=== PATIENT | male | born 1950 | race Caucasian/White ===

== ENCOUNTER 2021-12-28 13:00 | Outpatient (RCR) | payer MEDICARE, OTHER, SELFPAY ==
--- NOTE | 2021-11-20 20:54 | PT.OIE ---
Current Diagnoses Parkinson's disease (11/20/21) Visit Care Team Role Provider Type Sandrine Boyd MD Attending Provider Non-Staff Family Provider Primary Care Provider Referring Provider Specialty: Neurology Address: [address] [place] [address], [id number] Email: Physical Therapy Initial Evaluation PT-OP-A Visit Information Start: 11/19/21 20:22 Freq: Status: Active Protocol: Document 11/20/21 09:40 AMB (Rec: 11/20/21 10:11 AMB [id number]) Out-Patient Physical Therapy Visit Information Visit Information Visit Type Initial Evaluation Visit Start Time 09:45 Visit Stop Time 10:30 Total Visit Minutes 45 Visit Number 1 PT-OP-B Current Condition Start: 11/19/21 20:22 Freq: Status: Active Protocol: Document 11/20/21 09:40 AMB (Rec: 11/20/21 10:11 AMB [id number]) Current Condition History of Current Condition Onset Date 08/2019 Current Complaints PD History of Current Condition Kade Was really sick with Covid at the beginning of the pandemic and has had difficulty moving, walking ever since. Did have a bad fall wtih vacuuming April 2021. Hasn't been golfing since before covid. Is taking levodopa/carbadopa hasn't noticed a ton of change. Shoulder pain R just happened in the shower yesterday. Is noticing sleep changes, constipation. Feels bilateral knee/quad fatigue/pain limits his walking to about 15 minutes at this point. Lives in a single level home with his spouse a few steps to enter with railing. Treatment Goals Patient/Caregiver Goals Walking, signing name Personal Factors Other Personal Factors That May Effect Hypertension, B knee pain, R Therapy/Recovery shoulder pain PT-OP-E Functional Tests Start: 11/19/21 20:22 Freq: Status: Active Protocol: Document 11/20/21 10:16 AMB (Rec: 11/20/21 11:13 AMB [id number]) Functional Tests 10 Meter Walk Test Distance 6 Device Used none Five Times Sit to Stand Test Score 9 Comments UEs used, standard height chair Other single leg stance Name of Test 2 seconds PT-OP-G Mobility & Gait Start: 11/19/21 20:22 Freq: Status: Active Protocol: Document 11/20/21 10:16 AMB (Rec: 11/20/21 11:13 AMB [id number]) OP Gait Assessment Comments Gait Comments Pt ambulates in the home without AD, does have a wide based SPC that he uses in the community that he uses in the R UE. Poor heel strike with the left LE, tends to scuff toes. Fast gait but poor posture (forward lean) with reduced trunk rotation. Poor turning- loses balance when turning quickly or even at a moderate speed. PT-OP-J Posture/Palpation/Skin Start: 11/19/21 20:22 Freq: Status: Active Protocol: Document 11/20/21 10:16 AMB (Rec: 11/20/21 11:13 AMB [id number]) Posture Evaluation Comments Posture Comments Forward shoulders increased thoracic kyphosis, able to achieve upright posture with cues PT-OP-K Range of Motion Start: 11/19/21 20:22 Freq: Status: Active Protocol: Document 11/20/21 11:14 AMB (Rec: 11/20/21 11:17 AMB [id number]) Ankle and Foot Goniometric Range of Motion Ankle and Foot Left Passive Comments full passive range PT-OP-M Strength Start: 11/19/21 20:22 Freq: Status: Active Protocol: Document 11/20/21 11:14 AMB (Rec: 11/20/21 11:17 AMB [id number]) Shoulder Strength Shoulder Manual Muscle Testing Right Comments R shoulder pain when controlling descent from full flexion PT-OP-T Assessment and Plan Start: 11/19/21 20:22 Freq: Status: Active Protocol: Document 11/20/21 09:45 AMB (Rec: 11/23/21 08:17 AMB [id number]) Physical Therapy Assessment Rehab Potential Rehabilitation Potential Good Evaluation Complexity Number of Personal Factors/Comorbidities 1-2 Number of Body Systems Impaired 4 or More Clinical Presentation at Evaluation Evolving Impairments Impairments Balance,Functional Activities, Gait,Pain,Transfers Goals Two Impairment Upper body ADL Short Term Goal (STG) Kade will sign his name quicky and legibly on a check. STG Duration 4 weeks Dimensional Inspector Goal (LTG) Kade will don and doff a jacket quickly. LTG Duration 6 weeks One Impairment Gait Short Term Goal (STG) Kade will complete a pivot turn without loss of balance. STG Duration 4 weeks Dimensional Inspector Goal (LTG) Kade will ambulate 6 minutes over smooth terrain without loss of balance, 1,700 feet would be age/gender norm. LTG Duration 6 weeks Assessment Summary Assessment Kade attends physical therapy with symptoms consistent with Parkinson's Disease including tremor, freezing gait with turns, shuffling gait L>R, and bilateral knee pain that make it difficult for him to ambulate in the community and in his home. He will benefit from physical therapy LSVT BIG to improve his mobility, gait , transfers, as well as address more fine motor including upper body dressing and handwriting. Physical Therapy Plan Frequency and Duration Frequency of Treatment 4x/Week Duration of Treatment 6 weeks Plan of Care Start Date 11/20/21 Plan of Care End Date 01/01/22 Therapeutic Interventions Therapeutic Interventions Balance Training,Gait Training ,Home Exercise Program, Neuromuscular Re-education, Patient/Caregiver Education, Self-Care/Home Management, Therapeutic Activities, Therapeutic Exercises Next Visit Focus/Plan Next Note Type Treatment Note Next Visit Plan Begin LSVT Big program, review Functional Activities list
--- NOTE | 2021-11-20 20:57 | PT.OPPOC ---
Physical, Occupational & Speech Therapy At [facility] Current Diagnoses Parkinson's disease (11/20/21) Visit Care Team Role Provider Type Sandrine Boyd MD Attending Provider Non-Staff Family Provider Primary Care Provider Referring Provider Specialty: Neurology Address: [address] [place] [address], [id number] Email: Plan Of Care PT-OP-T Assessment and Plan Start: 11/19/21 20:22 Freq: Status: Active Protocol: Document 11/20/21 09:45 AMB (Rec: 11/23/21 08:17 AMB [id number]) Physical Therapy Assessment Rehab Potential Rehabilitation Potential Good Evaluation Complexity Number of Personal Factors/Comorbidities 1-2 Number of Body Systems Impaired 4 or More Clinical Presentation at Evaluation Evolving Impairments Impairments Balance,Functional Activities, Gait,Pain,Transfers Goals Two Impairment Upper body ADL Short Term Goal (STG) Kade will sign his name quicky and legibly on a check. STG Duration 4 weeks [facility] Goal (LTG) Kade will don and doff a jacket quickly. LTG Duration 6 weeks One Impairment Gait Short Term Goal (STG) Kade will complete a pivot turn without loss of balance. STG Duration 4 weeks Railroad Car Checker Goal (LTG) Kade will ambulate 6 minutes over smooth terrain without loss of balance, 1,700 feet would be age/gender norm. LTG Duration 6 weeks Assessment Summary Assessment Kade attends physical therapy with symptoms consistent with Parkinson's Disease including tremor, freezing gait with turns, shuffling gait L>R, and bilateral knee pain that make it difficult for him to ambulate in the community and in his home. He will benefit from physical therapy LSVT BIG to improve his mobility, gait , transfers, as well as address more fine motor including upper body dressing and handwriting. Physical Therapy Plan Frequency and Duration Frequency of Treatment 4x/Week Duration of Treatment 6 weeks Plan of Care Start Date 11/20/21 Plan of Care End Date 01/01/22 Therapeutic Interventions Therapeutic Interventions Balance Training,Gait Training ,Home Exercise Program, Neuromuscular Re-education, Patient/Caregiver Education, Self-Care/Home Management, Therapeutic Activities, Therapeutic Exercises Next Visit Focus/Plan Next Note Type Treatment Note Next Visit Plan Begin LSVT Big program, review Functional Activities list Plan of Care Dates Plan of Care Start Date 11/20/21 Plan of Care End Date 01/01/22 Electronically Signed by: Emma Gil PT 11/23/21 [id number] If you are in agreement with this Plan of Care, please return a signed and dated copy. I have reviewed this Plan of Care and certify that the skilled therapy services above are required to meet the patient?s needs. Physician Signature Date Printed Name and Credentials Clinical Instructor Signature Printed Name and Credentials
--- NOTE | 2021-12-04 12:42 | PT.OTN ---
Current Diagnoses Parkinson's disease (12/04/21) Physical Therapy Treatment Note PT-OP-A Visit Information Start: 11/19/21 20:22 Freq: Status: Active Protocol: Document 12/04/21 11:10 AMB (Rec: 12/04/21 12:03 AMB [id number]) Out-Patient Physical Therapy Visit Information Visit Information Visit Type Treatment Note Visit Start Time 11:00 Visit Stop Time 12:00 Total Visit Minutes 60 Visit Number 2 PT-OP-B Current Condition Start: 11/19/21 20:22 Freq: Status: Active Protocol: Document 11/20/21 09:40 AMB (Rec: 11/20/21 10:11 AMB [id number]) Current Condition History of Current Condition Onset Date 08/2019 Current Complaints PD History of Current Condition Kade Was really sick with Covid at the beginning of the pandemic and has had difficulty moving, walking ever since. Did have a bad fall wtih vaccuming April 2021. Hasn't been golfing since before covid. Is taking levodopa/carbadopa hasn't noticed a ton of change. Shoulder pain R just happened in the shower yesterday. Is noticing sleep changes, constipation. Feels bilateral knee/quad fatigue/pain limits his walking to about 15 minutes at this point. Lives in a single level home with his spouse a few steps to enter with railing. Treatment Goals Patient/Caregiver Goals Walking, signing name Personal Factors Other Personal Factors That May Effect Hypertension, B knee pain, R Therapy/Recovery shouder pain PT-OP-C Subjective Start: 11/19/21 20:22 Freq: Status: Active Protocol: Document 12/04/21 11:10 AMB (Rec: 12/04/21 12:03 AMB [id number]) OP-PT Subjective Patient Comments Patient Comments Pt having a difficult day today. PT-OP-E Functional Tests Start: 11/19/21 20:22 Freq: Status: Active Protocol: Document 11/20/21 10:16 AMB (Rec: 11/20/21 11:13 AMB [id number]) Functional Tests 10 Meter Walk Test Distance 6 Device Used none Five Times Sit to Stand Test Score 9 Comments UEs used, standard height chair Other single leg stance Name of Test 2 seconds PT-OP-G Mobility & Gait Start: 11/19/21 20:22 Freq: Status: Active Protocol: Document 11/20/21 10:16 AMB (Rec: 11/20/21 11:13 AMB [id number]) OP Gait Assessment Comments Gait Comments Pt ambulates in the home without AD, does have a wide based SPC that he uses in the community that he uses in the R UE. Poor heel strike with the left LE, tends to scuff toes. Fast gait but poor posture (forward lean) with reduced trunk rotation. Poor turning- loses balance when turning quickly or even at a moderate speed. PT-OP-J Posture/Palpation/Skin Start: 11/19/21 20:22 Freq: Status: Active Protocol: Document 11/20/21 10:16 AMB (Rec: 11/20/21 11:13 AMB [id number]) Posture Evaluation Comments Posture Comments Forward shoulders increased thoracic kyphosis, able to achieve upright posture with cues PT-OP-K Range of Motion Start: 11/19/21 20:22 Freq: Status: Active Protocol: Document 11/20/21 11:14 AMB (Rec: 11/20/21 11:17 AMB [id number]) Ankle and Foot Goniometric Range of Motion Ankle and Foot Left Passive Comments full passive range PT-OP-M Strength Start: 11/19/21 20:22 Freq: Status: Active Protocol: Document 11/20/21 11:14 AMB (Rec: 11/20/21 11:17 AMB [id number]) Shoulder Strength Shoulder Manual Muscle Testing Right Comments R shoulder pain when controlling descent from full flexion PT-OP-Q Treatments Start: 11/19/21 20:22 Freq: Status: Active Protocol: Document 12/04/21 11:00 AMB (Rec: 12/04/21 12:42 AMB [id number]) Gait Training Gait Activity 1 Description smooth terrain, no AD Distance/Duration 150 Comments cued big step, slower pacing, trunk rotation Neuro Re-Education Treatment Other Activities Sit to stand Details standard height chair Reps/Duration 10 Comments Good forward reach, cued upright posture Sideways Rock and Reach Reps/Duration 10 Comments Adapted with UE on chair, cued pivot on toes Forward Rock and Reach Details Chair support Reps/Duration 10 Backward Step Details Chair support Reps/Duration 10 Comments Pt with difficulty coordinating UE and LE movement Sideways Step Details Chair support Reps/Duration 10 Forward Step Details Chair support Reps/Duration 10 Side to side Details with finger flicks Reps/Duration 8 Floor to ceiling Details with finger flicks Reps/Duration 8 PT-OP-T Assessment and Plan Start: 11/19/21 20:22 Freq: Status: Active Protocol: Document 12/04/21 11:00 AMB (Rec: 12/04/21 12:42 AMB [id number]) Physical Therapy Assessment Goals Two Impairment Upper body ADL Short Term Goal (STG) Kade will sign his name quicky and legibly on a check. STG Duration 4 weeks Senior Living Goal (LTG) Kade will don and doff a jacket quickly. LTG Duration 6 weeks One Impairment Gait Short Term Goal (STG) Kade will complete a pivot turn without loss of balance. STG Duration 4 weeks Forensic Nurse Goal (LTG) Kade will ambulate 6 minutes over smooth terrain without loss of balance, 1,700 feet would be age/gender norm. LTG Duration 6 weeks Assessment Summary Assessment Kade did better with gait today with cues for big steps, rather than worrying about heel toe strike. States he remembers people telling him to get off his toes when he walked as a kid. Does have a tendency to have a festinating gait at times. Did well with adapted exercises. Physical Therapy Plan Next Visit Focus/Plan Next Note Type Treatment Note Next Visit Plan Begin LSVT Big program- adapted, review Functional Activities list (pt filled out but did not assign numbers). Gait training with turns as tolerated, fine motor includes : contacts, tie shoes, writing .
--- NOTE | 2021-12-05 17:13 | PT.OTN ---
Current Diagnoses Parkinson's disease (12/05/21) Physical Therapy Treatment Note PT-OP-A Visit Information Start: 11/19/21 20:22 Freq: Status: Active Protocol: Document 12/05/21 14:11 AW (Rec: 12/05/21 17:13 AW [id number]) Out-Patient Physical Therapy Visit Information Visit Information Visit Type Treatment Note Visit Start Time 14:15 Visit Stop Time 15:15 Total Visit Minutes 60 Visit Number 3 PT-OP-B Current Condition Start: 11/19/21 20:22 Freq: Status: Active Protocol: Document 11/20/21 09:40 AMB (Rec: 11/20/21 10:11 AMB [id number]) Current Condition History of Current Condition Onset Date 08/2019 Current Complaint[address] History of Current Condition Kade Was really sick with Covid at the beginning of the pandemic and has had difficulty moving, walking ever since. Did have a bad fall wtih vaccuming April 2021. Hasn't been golfing since before covid. Is taking levodopa/carbadopa hasn't noticed a ton of change. Shoulder pain R just happened in the shower yesterday. Is noticing sleep changes, constipation. Feels bilateral knee/quad fatigue/pain limits his walking to about 15 minutes at this point. Lives in a single level home with his spouse a few steps to enter with railing. Treatment Goals Patient/Caregiver Goals Walking, signing name Personal Factors Other Personal Factors That May Effect Hypertension, B knee pain, R Therapy/Recovery shouder pain PT-OP-C Subjective Start: 11/19/21 20:22 Freq: Status: Active Protocol: Document 12/05/21 14:11 AW (Rec: 12/05/21 17:13 AW [id number]) OP-PT Subjective Patient Comments Patient Comments This is hard work. I still feel sore from yesterday. PT-OP-E Functional Tests Start: 11/19/21 20:22 Freq: Status: Active Protocol: Document 11/20/21 10:16 AMB (Rec: 11/20/21 11:13 AMB [id number]) Functional Tests 10 Meter Walk Test Distance 6 Device Used none Five Times Sit to Stand Test Score 9 Comments UEs used, standard height chair Other single leg stance Name of Test 2 seconds PT-OP-G Mobility & Gait Start: 11/19/21 20:22 Freq: Status: Active Protocol: Document 11/20/21 10:16 AMB (Rec: 11/20/21 11:13 AMB [id number]) OP Gait Assessment Comments Gait Comments Pt ambulates in the home without AD, does have a wide based SPC that he uses in the community that he uses in the R UE. Poor heel strike with the left LE, tends to scuff toes. Fast gait but poor posture (forward lean) with reduced trunk rotation. Poor turning- loses balance when turning quickly or even at a moderate speed. PT-OP-J Posture/Palpation/Skin Start: 11/19/21 20:22 Freq: Status: Active Protocol: Document 11/20/21 10:16 AMB (Rec: 11/20/21 11:13 AMB [id number]) Posture Evaluation Comments Posture Comments Forward shoulders increased thoracic kyphosis, able to achieve upright posture with cues PT-OP-K Range of Motion Start: 11/19/21 20:22 Freq: Status: Active Protocol: Document 11/20/21 11:14 AMB (Rec: 11/20/21 11:17 AMB [id number]) Ankle and Foot Goniometric Range of Motion Ankle and Foot Left Passive Comments full passive range PT-OP-M Strength Start: 11/19/21 20:22 Freq: Status: Active Protocol: Document 11/20/21 11:14 AMB (Rec: 11/20/21 11:17 AMB [id number]) Shoulder Strength Shoulder Manual Muscle Testing Right Comments R shoulder pain when controlling descent from full flexion PT-OP-Q Treatments Start: 11/19/21 20:22 Freq: Status: Active Protocol: Document 12/05/21 14:11 AW (Rec: 12/05/21 17:13 AW [id number]) Therapeutic Activity Therapeutic Activity writing Name writing Comments Writing on extra-wide ruled paper with emphasis on improving amplitude - especially toward right side of page. Encouraged finger flicks and solid cart driver on the pen. Gait Training Gait Activity turns Description turns Comments Cued BIG steps, stopping stutter steps - 45 deg in two steps or less - 90 deg in 4 steps or less - 360 deg in 8 steps or less 1 Description smooth terrain, no AD Distance/Duration 80 x 8 Comments -Cued big step, slower pacing, trunk rotation. -Worked on festinating pattern and pt was able to identify when falling into stutter steps. Cued Stop, stand tall, shift weight , step big. -Practiced quick stops. Neuro Re-Education Treatment Other Activities Sit to stand Details standard height chair Reps/Duration 10 Comments Good forward reach, cued upright posture Sideways Rock and Reach Reps/Duration 10 Comments Adapted with UE on rail, cued increased rotation, pivot on back foot. Forward Rock and Reach Details Chair support Reps/Duration 10 Backward Step Details Chair support Reps/Duration 10 Comments Focused on LE movement first before adding arm swing. Sideways Step Details Chair support Reps/Duration 10 Forward Step Details Chair support Reps/Duration 10 Side to side Details with finger flicks Reps/Duration 8 Floor to ceiling Details with finger flicks Reps/Duration 8 PT-OP-T Assessment and Plan Start: 11/19/21 20:22 Freq: Status: Active Protocol: Document 12/05/21 14:11 AW (Rec: 12/05/21 17:13 AW [id number]) Physical Therapy Assessment Goals Two Impairment Upper body ADL Short Term Goal (STG) Kade will sign his name quicky and legibly on a check. STG Duration 4 weeks Shopper Marketing Manager Goal (LTG) Kade will don and doff a jacket quickly. LTG Duration 6 weeks One Impairment Gait Short Term Goal (STG) Kade will complete a pivot turn without loss of balance. STG Duration 4 weeks Shopper Marketing Manager Goal (LTG) Kade will ambulate 6 minutes over smooth terrain without loss of balance, 1,700 feet would be age/gender norm. LTG Duration 6 weeks Assessment Summary Assessment Kade was able to improve his turns with cues for BIG steps. He has trouble with stopping quickly, often unable to arrest his forward momentum. To address festinating pattern , pt was cued to stop, stand tall, shift weight, and step big to reset. Pt had some success identifying stutter or shuffle step and did self- correct ~50% of the time during practice. Carryover to outside the clinic is poor at this time and will require repetition to improve calibration. Physical Therapy Plan Frequency and Duration Frequency of Treatment 4x/Week Duration of Treatment 6 weeks Plan of Care Start Date 11/20/21 Plan of Care End Date 01/01/22 Therapeutic Interventions Therapeutic Interventions Balance Training,Gait Training ,Home Exercise Program, Neuromuscular Re-education, Patient/Caregiver Education, Self-Care/Home Management, Therapeutic Activities, Therapeutic Exercises Next Visit Focus/Plan Next Note Type Treatment Note Next Visit Plan Continue with adapted exercises, gait with turns and quick stops, functional activities.
--- NOTE | 2021-12-06 12:10 | PT.OTN ---
Current Diagnoses Parkinson's disease (12/06/21) Physical Therapy Treatment Note PT-OP-A Visit Information Start: 11/19/21 20:22 Freq: Status: Active Protocol: Document 12/06/21 11:02 AMB (Rec: 12/06/21 11:40 AMB [id number]) Out-Patient Physical Therapy Visit Information Visit Information Visit Type Treatment Note Visit Start Time 11:00 Visit Stop Time 12:00 Total Visit Minutes 60 Visit Number 4 PT-OP-B Current Condition Start: 11/19/21 20:22 Freq: Status: Active Protocol: Document 11/20/21 09:40 AMB (Rec: 11/20/21 10:11 AMB [id number]) Current Condition History of Current Condition Onset Date 08/2019 Current Complaints PD History of Current Condition Kade Was really sick with Covid at the beginning of the pandemic and has had difficulty moving, walking ever since. Did have a bad fall wtih vaccuming April 2021. Hasn't been golfing since before covid. Is taking levodopa/carbadopa hasn't noticed a ton of change. Shoulder pain R just happened in the shower yesterday. Is noticing sleep changes, constipation. Feels bilateral knee/quad fatigue/pain limits his walking to about 15 minutes at this point. Lives in a single level home with his spouse a few steps to enter with railing. Treatment Goals Patient/Caregiver Goals Walking, signing name Personal Factors Other Personal Factors That May Effect Hypertension, B knee pain, R Therapy/Recovery shouder pain PT-OP-C Subjective Start: 11/19/21 20:22 Freq: Status: Active Protocol: Document 12/06/21 11:02 AMB (Rec: 12/06/21 11:40 AMB [id number]) OP-PT Subjective Patient Comments Patient Comments I worked on walking and turning with less than 8 steps last night. R shoulder has been a little sore. PT-OP-E Functional Tests Start: 11/19/21 20:22 Freq: Status: Active Protocol: Document 11/20/21 10:16 AMB (Rec: 11/20/21 11:13 AMB [id number]) Functional Tests 10 Meter Walk Test Distance 6 Device Used none Five Times Sit to Stand Test Score 9 Comments UEs used, standard height chair Other single leg stance Name of Test 2 seconds PT-OP-G Mobility & Gait Start: 11/19/21 20:22 Freq: Status: Active Protocol: Document 11/20/21 10:16 AMB (Rec: 11/20/21 11:13 AMB [id number]) OP Gait Assessment Comments Gait Comments Pt ambulates in the home without AD, does have a wide based SPC that he uses in the community that he uses in the R UE. Poor heel strike with the left LE, tends to scuff toes. Fast gait but poor posture (forward lean) with reduced trunk rotation. Poor turning- loses balance when turning quickly or even at a moderate speed. PT-OP-J Posture/Palpation/Skin Start: 11/19/21 20:22 Freq: Status: Active Protocol: Document 11/20/21 10:16 AMB (Rec: 11/20/21 11:13 AMB [id number]) Posture Evaluation Comments Posture Comments Forward shoulders increased thoracic kyphosis, able to achieve upright posture with cues PT-OP-K Range of Motion Start: 11/19/21 20:22 Freq: Status: Active Protocol: Document 11/20/21 11:14 AMB (Rec: 11/20/21 11:17 AMB [id number]) Ankle and Foot Goniometric Range of Motion Ankle and Foot Left Passive Comments full passive range PT-OP-M Strength Start: 11/19/21 20:22 Freq: Status: Active Protocol: Document 11/20/21 11:14 AMB (Rec: 11/20/21 11:17 AMB [id number]) Shoulder Strength Shoulder Manual Muscle Testing Right Comments R shoulder pain when controlling descent from full flexion PT-OP-Q Treatments Start: 11/19/21 20:22 Freq: Status: Active Protocol: Document 12/06/21 11:02 AMB (Rec: 12/06/21 11:40 AMB [id number]) Gait Training Gait Activity 1 Description smooth terrain, no AD Distance/Duration 80 x 4 Comments -Cued big step, slower pacing, trunk rotation. -Worked on festinating pattern and pt was able to identify when falling into stutter steps. Cued Stop, stand tall, shift weight , step big. Pt needed Reg to stop festination today, lower gait tolerance. Feels fatigued, SpO2 98%. Pt needed multiple rest breaks for safety. Neuro Re-Education Treatment Other Activities Sit to stand Details standard height chair; blue balance foam Reps/Duration 10 Comments Good forward reach, cued upright posture Sideways Rock and Reach Reps/Duration 12 Comments Adapted with UE on rail, cued increased rotation, pivot on back foot. Forward Rock and Reach Details Chair support Reps/Duration 12 Backward Step Details Chair support Reps/Duration 10 Comments Focused on LE movement first before adding arm swing. Sideways Step Details Chair support available, pt did not use Reps/Duration 10 Forward Step Details Chair support available, pt did not use Reps/Duration 10 Side to side Details with finger flicks Reps/Duration 8 Floor to ceiling Details with finger flicks Reps/Duration 8 PT-OP-T Assessment and Plan Start: 11/19/21 20:22 Freq: Status: Active Protocol: Document 12/06/21 11:02 AMB (Rec: 12/06/21 11:40 AMB [id number]) Physical Therapy Assessment Goals Two Impairment Upper body ADL Short Term Goal (STG) Kade will sign his name quicky and legibly on a check. STG Duration 4 weeks Windows Admin Goal (LTG) Kade will don and doff a jacket quickly. LTG Duration 6 weeks One Impairment Gait Short Term Goal (STG) Kade will complete a pivot turn without loss of balance. STG Duration 4 weeks Windows Admin Goal (LTG) Kade will ambulate 6 minutes over smooth terrain without loss of balance, 1,700 feet would be age/gender norm. LTG Duration 6 weeks Assessment Summary Assessment Kade had a hard time with gait after exercise today, feeling very fatigued despite multiple seated rest breaks. Festinating gait comes out significantly with fatigue and pt needed Reg on multiple instances to prevent LOB anteriorly. Pt states he generally reaches out for a wall when this happens at home . Physical Therapy Plan Next Visit Focus/Plan Next Note Type Treatment Note Next Visit Plan Continue with adapted exercises, gait with turns and quick stops, functional activities, can consider outdoor environment as tolerated as pt feels SOB with masking.
--- NOTE | 2021-12-07 15:15 | PT.OTN ---
Current Diagnoses Parkinson's disease (12/07/21) Physical Therapy Treatment Note PT-OP-A Visit Information Start: 11/19/21 20:22 Freq: Status: Active Protocol: Document 12/07/21 13:58 AW (Rec: 12/07/21 15:15 AW [id number]) Out-Patient Physical Therapy Visit Information Visit Information Visit Type Treatment Note Visit Start Time 14:15 Visit Stop Time 15:15 Total Visit Minutes 60 Visit Number 5 PT-OP-B Current Condition Start: 11/19/21 20:22 Freq: Status: Active Protocol: Document 11/20/21 09:40 AMB (Rec: 11/20/21 10:11 AMB [id number]) Current Condition History of Current Condition Onset Date 08/2019 Current Complaints PD History of Current Condition Kade Was really sick with Covid at the beginning of the pandemic and has had difficulty moving, walking ever since. Did have a bad fall wtih vaccuming April 2021. Hasn't been golfing since before covid. Is taking levodopa/carbadopa hasn't noticed a ton of change. Shoulder pain R just happened in the shower yesterday. Is noticing sleep changes, constipation. Feels bilateral knee/quad fatigue/pain limits his walking to about 15 minutes at this point. Lives in a single level home with his spouse a few steps to enter with railing. Treatment Goals Patient/Caregiver Goals Walking, signing name Personal Factors Other Personal Factors That May Effect Hypertension, B knee pain, R Therapy/Recovery shouder pain PT-OP-C Subjective Start: 11/19/21 20:22 Freq: Status: Active Protocol: Document 12/07/21 13:58 AW (Rec: 12/07/21 15:15 AW [id number]) OP-PT Subjective Patient Comments Patient Comments Knees are sore. Pt is trying exercises at home but not sure he's doing them as well as he could. PT-OP-E Functional Tests Start: 11/19/21 20:22 Freq: Status: Active Protocol: Document 11/20/21 10:16 AMB (Rec: 11/20/21 11:13 AMB [id number]) Functional Tests 10 Meter Walk Test Distance 6 Device Used none Five Times Sit to Stand Test Score 9 Comments UEs used, standard height chair Other single leg stance Name of Test 2 seconds PT-OP-G Mobility & Gait Start: 11/19/21 20:22 Freq: Status: Active Protocol: Document 11/20/21 10:16 AMB (Rec: 11/20/21 11:13 AMB [id number]) OP Gait Assessment Comments Gait Comments Pt ambulates in the home without AD, does have a wide based SPC that he uses in the community that he uses in the [facility]. Poor heel strike with the left LE, tends to scuff toes. Fast gait but poor posture (forward lean) with reduced trunk rotation. Poor turning- loses balance when turning quickly or even at a moderate speed. PT-OP-J Posture/Palpation/Skin Start: 11/19/21 20:22 Freq: Status: Active Protocol: Document 11/20/21 10:16 AMB (Rec: 11/20/21 11:13 AMB [id number]) Posture Evaluation Comments Posture Comments Forward shoulders increased thoracic kyphosis, able to achieve upright posture with cues PT-OP-K Range of Motion Start: 11/19/21 20:22 Freq: Status: Active Protocol: Document 11/20/21 11:14 AMB (Rec: 11/20/21 11:17 AMB [id number]) Ankle and Foot Goniometric Range of Motion Ankle and Foot Left Passive Comments full passive range PT-OP-M Strength Start: 11/19/21 20:22 Freq: Status: Active Protocol: Document 11/20/21 11:14 AMB (Rec: 11/20/21 11:17 AMB [id number]) Shoulder Strength Shoulder Manual Muscle Testing Right Comments R shoulder pain when controlling descent from full flexion PT-OP-Q Treatments Start: 11/19/21 20:22 Freq: Status: Active Protocol: Document 12/07/21 13:58 AW (Rec: 12/07/21 15:15 AW [id number]) Therapeutic Activity Therapeutic Activity writing Name writing Comments -Practice checks. -Writing grocery list on extra -wide ruled paper with emphasis on improving amplitude - especially toward right side of page. Encouraged finger flicks and solid line repairer tower on the pen, movement of whole upper extremity. Gait Training Gait Activity turns Description turns Comments Cued BIG steps, slower pace - 45 deg in two steps or less - 90 deg in 4 steps or less - 360 deg in 8 steps or less 1 Description smooth terrain, no AD Surface in Distance/Duration 80 x 4 inside; 180 x 1 outside Comments -Cued big step, slower pacing, trunk rotation. -Worked on festinating pattern and pt was able to identify when falling into stutter steps. Cued Stop, stand tall, shift weight , step big. CGA to arrest forward momentum with sudden stops 50% of the time, improved with reps. Neuro Re-Education Treatment Other Activities Sit to stand Details standard height chair; blue balance foam Reps/Duration 10 Comments Good forward reach, cued upright posture Sideways Rock and Reach Reps/Duration 12 Comments Adapted with UE on rail, cued increased rotation, good self- correction with back foot pivot Forward Rock and Reach Details Chair support Reps/Duration 12 Backward Step Details Chair support Reps/Duration 10 Comments Focused on LE movement first before adding arm swing. Sideways Step Details Rail support available, pt did not use Reps/Duration 10 Forward Step Details Rail support Reps/Duration 10 Side to side Details with finger flicks Reps/Duration 8 Comments good self-corrections in posture Floor to ceiling Details with finger flicks Reps/Duration 8 PT-OP-T Assessment and Plan Start: 11/19/21 20:22 Freq: Status: Active Protocol: Document 12/07/21 13:58 AW (Rec: 12/07/21 15:15 AW [id number]) Physical Therapy Assessment Goals Two Impairment Upper body ADL Short Term Goal (STG) Kade will sign his name quicky and legibly on a check. STG Duration 4 weeks Physical Chemistry Professor Goal (LTG) Kade will don and doff a jacket quickly. LTG Duration 6 weeks One Impairment Gait Short Term Goal (STG) Kade will complete a pivot turn without loss of balance. STG Duration 4 weeks Physical Chemistry Professor Goal (LTG) Kade will ambulate 6 minutes over smooth terrain without loss of balance, 1,700 feet would be age/gender norm. LTG Duration 6 weeks Assessment Summary Assessment Kade had some good carryover with big steps in turns but continues to benefit from verbal cues to think big when initiating gait and when approaching a transition. Physical Therapy Plan Frequency and Duration Frequency of Treatment 4x/Week Duration of Treatment 6 weeks Plan of Care Start Date 11/20/21 Plan of Care End Date 01/01/22 Therapeutic Interventions Therapeutic Interventions Balance Training,Gait Training ,Home Exercise Program, Neuromuscular Re-education, Patient/Caregiver Education, Self-Care/Home Management, Therapeutic Activities, Therapeutic Exercises Next Visit Focus/Plan Next Note Type Treatment Note Next Visit Plan Continue with adapted exercises, gait with turns and quick stops, functional activities, can consider outdoor environment as tolerated as pt feels SOB with masking.
--- NOTE | 2021-12-11 12:43 | PT.OTN ---
Current Diagnoses Parkinson's disease (12/11/21) Physical Therapy Treatment Note PT-OP-A Visit Information Start: 11/19/21 20:22 Freq: Status: Active Protocol: Document 12/11/21 10:58 AMB (Rec: 12/11/21 11:57 AMB [id number]) Out-Patient Physical Therapy Visit Information Visit Information Visit Type Treatment Note Visit Start Time 11:00 Visit Stop Time 12:00 Total Visit Minutes 60 Visit Number 6 PT-OP-B Current Condition Start: 11/19/21 20:22 Freq: Status: Active Protocol: Document 11/20/21 09:40 AMB (Rec: 11/20/21 10:11 AMB [id number]) Current Condition History of Current Condition Onset Date 08/2019 Current Complaints PD History of Current Condition Kade Was really sick with Covid at the beginning of the pandemic and has had difficulty moving, walking ever since. Did have a bad fall wtih vaccuming April 2021. Hasn't been golfing since before covid. Is taking levodopa/carbadopa hasn't noticed a ton of change. Shoulder pain R just happened in the shower yesterday. Is noticing sleep changes, constipation. Feels bilateral knee/quad fatigue/pain limits his walking to about 15 minutes at this point. Lives in a single level home with his spouse a few steps to enter with railing. Treatment Goals Patient/Caregiver Goals Walking, signing name Personal Factors Other Personal Factors That May Effect Hypertension, B knee pain, R Therapy/Recovery shouder pain PT-OP-C Subjective Start: 11/19/21 20:22 Freq: Status: Active Protocol: Document 12/11/21 10:58 AMB (Rec: 12/11/21 11:57 AMB [id number]) OP-PT Subjective Patient Comments Patient Comments Pt's mom is in the hospital in [place]. PT-OP-E Functional Tests Start: 11/19/21 20:22 Freq: Status: Active Protocol: Document 11/20/21 10:16 AMB (Rec: 11/20/21 11:13 AMB [id number]) Functional Tests 10 Meter Walk Test Distance 6 Device Used none Five Times Sit to Stand Test Score 9 Comments UEs used, standard height chair Other single leg stance Name of Test 2 seconds PT-OP-G Mobility & Gait Start: 11/19/21 20:22 Freq: Status: Active Protocol: Document 11/20/21 10:16 AMB (Rec: 11/20/21 11:13 AMB [id number]) OP Gait Assessment Comments Gait Comments Pt ambulates in the home without AD, does have a wide based SPC that he uses in the community that he uses in the [facility]. Poor heel strike with the left LE, tends to scuff toes. Fast gait but poor posture (forward lean) with reduced trunk rotation. Poor turning- loses balance when turning quickly or even at a moderate speed. PT-OP-J Posture/Palpation/Skin Start: 11/19/21 20:22 Freq: Status: Active Protocol: Document 11/20/21 10:16 AMB (Rec: 11/20/21 11:13 AMB [id number]) Posture Evaluation Comments Posture Comments Forward shoulders increased thoracic kyphosis, able to achieve upright posture with cues PT-OP-K Range of Motion Start: 11/19/21 20:22 Freq: Status: Active Protocol: Document 11/20/21 11:14 AMB (Rec: 11/20/21 11:17 AMB [id number]) Ankle and Foot Goniometric Range of Motion Ankle and Foot Left Passive Comments full passive range PT-OP-M Strength Start: 11/19/21 20:22 Freq: Status: Active Protocol: Document 11/20/21 11:14 AMB (Rec: 11/20/21 11:17 AMB [id number]) Shoulder Strength Shoulder Manual Muscle Testing Right Comments R shoulder pain when controlling descent from full flexion PT-OP-Q Treatments Start: 11/19/21 20:22 Freq: Status: Active Protocol: Document 12/11/21 10:58 AMB (Rec: 12/11/21 11:57 AMB [id number]) Therapeutic Activity Therapeutic Activity donning jacket Name labcoat Reps/Minutes 3 Comments don/doff, careful with skin tear on L forearm, cued button through button hold Gait Training Gait Activity turns Description turns Comments Cued BIG steps, slower pace - 45 deg in two steps or less - 90 deg in 4 steps or less - 360 deg in 8 steps or less 1 Description smooth terrain, no AD Surface in Distance/Duration 100 x 4 inside; Comments -Cued big step, slower pacing, trunk rotation. -Worked on festinating pattern and pt was able to identify when falling into stutter steps. Cued Stop, stand tall, shift weight , step big. CGA to arrest forward momentum with sudden stops 25% of the time, improved with reps. Neuro Re-Education Treatment Other Activities Sit to stand Details standard height chair; blue balance foam Reps/Duration 5 Comments Good forward reach, cued upright posture Sideways Rock and Reach Reps/Duration 12 Comments Adapted with UE on rail, cued increased rotation, good self- correction with back foot pivot Forward Rock and Reach Details Chair support Reps/Duration 12 Backward Step Details Chair support Reps/Duration 10 Comments Focused on LE movement first before adding arm swing. Sideways Step Details Rail support available, pt did not use Reps/Duration 10 Forward Step Details Rail available but did not use Reps/Duration 10 Side to side Details with finger flicks Reps/Duration 8 Comments good self-corrections in posture Floor to ceiling Details with finger flicks Reps/Duration 8 PT-OP-T Assessment and Plan Start: 11/19/21 20:22 Freq: Status: Active Protocol: Document 12/11/21 10:58 AMB (Rec: 12/11/21 11:57 [facility] [id number]) Physical Therapy Assessment Goals Two Impairment Upper body ADL Short Term Goal (STG) Kade will sign his name quicky and legibly on a check. STG Duration 4 weeks Retirement Goal (LTG) Kade will don and doff a jacket quickly. LTG Duration 6 weeks One Impairment Gait Short Term Goal (STG) Kade will complete a pivot turn without loss of balance. STG Duration 4 weeks Retirement Goal (LTG) Kade will ambulate 6 minutes over smooth terrain without loss of balance, 1,700 feet would be age/gender norm. LTG Duration 6 weeks Assessment Summary Assessment Kade did better today. Did discuss energy conservation, [place] if pt is going to be flying to see his mom. Overall better gait today is more independent with stopping when shuffling gait starts. Physical Therapy Plan Frequency and Duration Frequency of Treatment 4x/Week Duration of Treatment 6 weeks Plan of Care Start Date 11/20/21 Plan of Care End Date 01/01/22 Therapeutic Interventions Therapeutic Interventions Balance Training,Gait Training ,Home Exercise Program, Neuromuscular Re-education, Patient/Caregiver Education, Self-Care/Home Management, Therapeutic Activities, Therapeutic Exercises Next Visit Focus/Plan Next Note Type Treatment Note Next Visit Plan Continue with adapted exercises, gait with turns and quick stops, functional activities, can consider outdoor environment as tolerated as pt feels SOB with masking.
--- NOTE | 2021-12-12 15:15 | PT.OTN ---
Current Diagnoses Parkinson's disease (12/12/21) Physical Therapy Treatment Note PT-OP-A Visit Information Start: 11/19/21 20:22 Freq: Status: Active Protocol: Document 12/12/21 14:02 AW (Rec: 12/12/21 15:14 AW [id number]) Out-Patient Physical Therapy Visit Information Visit Information Visit Type Treatment Note Visit Start Time 14:15 Visit Stop Time 15:10 Total Visit Minutes 55 Visit Number 7 PT-OP-B Current Condition Start: 11/19/21 20:22 Freq: Status: Active Protocol: Document 11/20/21 09:40 AMB (Rec: 11/20/21 10:11 AMB [id number]) Current Condition History of Current Condition Onset Date 08/2019 Current Complaints PD History of Current Condition Kade Was really sick with Covid at the beginning of the pandemic and has had difficulty moving, walking ever since. Did have a bad fall wtih vaccuming April 2021. Hasn't been golfing since before covid. Is taking levodopa/carbadopa hasn't noticed a ton of change. Shoulder pain R just happened in the shower yesterday. Is noticing sleep changes, constipation. Feels bilateral knee/quad fatigue/pain limits his walking to about 15 minutes at this point. Lives in a single level home with his spouse a few steps to enter with railing. Treatment Goals Patient/Caregiver Goals Walking, signing name Personal Factors Other Personal Factors That May Effect Hypertension, B knee pain, R Therapy/Recovery shouder pain PT-OP-C Subjective Start: 11/19/21 20:22 Freq: Status: Active Protocol: Document 12/12/21 14:02 AW (Rec: 12/12/21 15:14 AW [id number]) OP-PT Subjective Patient Comments Patient Comments Pt's mom has discharged from the hospital and will be going on hospice. Kade has no travel plans yet, hopes to finish BIG. PT-OP-E Functional Tests Start: 11/19/21 20:22 Freq: Status: Active Protocol: Document 11/20/21 10:16 AMB (Rec: 11/20/21 11:13 AMB [id number]) Functional Tests 10 Meter Walk Test Distance 6 Device Used none Five Times Sit to Stand Test Score 9 Comments UEs used, standard height chair Other single leg stance Name of Test 2 seconds PT-OP-G Mobility & Gait Start: 11/19/21 20:22 Freq: Status: Active Protocol: Document 11/20/21 10:16 AMB (Rec: 11/20/21 11:13 AMB [id number]) OP Gait Assessment Comments Gait Comments Pt ambulates in the home without AD, does have a wide based SPC that he uses in the community that he uses in the R UE. Poor heel strike with the left LE, tends to scuff toes. Fast gait but poor posture (forward lean) with reduced trunk rotation. Poor turning- loses balance when turning quickly or even at a moderate speed. PT-OP-J Posture/Palpation/Skin Start: 11/19/21 20:22 Freq: Status: Active Protocol: Document 11/20/21 10:16 AMB (Rec: 11/20/21 11:13 AMB [id number]) Posture Evaluation Comments Posture Comments Forward shoulders increased thoracic kyphosis, able to achieve upright posture with cues PT-OP-K Range of Motion Start: 11/19/21 20:22 Freq: Status: Active Protocol: Document 11/20/21 11:14 AMB (Rec: 11/20/21 11:17 AMB [id number]) Ankle and Foot Goniometric Range of Motion Ankle and Foot Left Passive Comments full passive range PT-OP-M Strength Start: 11/19/21 20:22 Freq: Status: Active Protocol: Document 11/20/21 11:14 AMB (Rec: 11/20/21 11:17 AMB [id number]) Shoulder Strength Shoulder Manual Muscle Testing Right Comments R shoulder pain when controlling descent from full flexion PT-OP-Q Treatments Start: 11/19/21 20:22 Freq: Status: Active Protocol: Document 12/12/21 14:02 AW (Rec: 12/12/21 15:14 AW [id number]) Therapeutic Activity Therapeutic Activity transfers Reps/Minutes transfers Comments 90-deg transfers chair to chair 5 feet apart. Focused on toes point away from chair before reaching for chair arms to control for sideways slide. writing Name writing Comments - Writing single word repeatedly across page with focus on big letters, controlled pace. Cued finger flicks, strong pencils washer, stop and do shoulder rolls when writing gets less controlled. Gait Training Gait Activity turns Description turns Comments Cued BIG steps, slower pace - 360 deg in 8 steps or less - gait with pivot turns 1 Description smooth terrain, no AD Distance/Duration 200' outside; 100 x 4 inside; Comments - Outside: pavement, grassy hill, stairs. -Inside: tile, carpet with additional practice on surface transitions. -Cued big step, slower pacing, trunk rotation. -Worked on festinating pattern and pt was able to identify when falling into stutter steps. Cued Stop, stand tall, shift weight , step big. CGA to arrest forward momentum with sudden stops on 1/10 trials. Neuro Re-Education Treatment Other Activities Sit to stand Details standard height chair; blue balance foam Reps/Duration 5 Comments Good forward reach, cued upright posture Sideways Rock and Reach Reps/Duration 12 Comments Adapted with UE on rail, cued increased rotation, good self- correction with back foot pivot Forward Rock and Reach Details Chair support Reps/Duration 12 Backward Step Details Chair support Reps/Duration 10 Comments Improved weight shift. Began to complain of iincreased knee pain. Sideways Step Details used both arms with SBA Forward Step Details used both arms with SBA Reps/Duration 10 Side to side Details with finger flicks Reps/Duration 8 Comments good self-corrections in posture Floor to ceiling Details with finger flicks Reps/Duration 8 PT-OP-T Assessment and Plan Start: 11/19/21 20:22 Freq: Status: Active Protocol: Document 12/12/21 14:02 AW (Rec: 12/12/21 15:14 AW [id number]) Physical Therapy Assessment Goals Two Impairment Upper body ADL Short Term Goal (STG) Kade will sign his name quicky and legibly on a check. STG Duration 4 weeks Real Estate Instructor Goal (LTG) Kade will don and doff a jacket quickly. LTG Duration 6 weeks One Impairment Gait Short Term Goal (STG) Kade will complete a pivot turn without loss of balance. STG Duration 4 weeks [facility] Goal (LTG) Kade will ambulate 6 minutes over smooth terrain without loss of balance, 1,700 feet would be age/gender norm. LTG Duration 6 weeks Assessment Summary Assessment Kade improved 360-degree turns to 6 steps and better foot clearance. He believes his endurance is improving with therapy but he remains easily fatiguable during gait. Physical Therapy Plan Frequency and Duration Frequency of Treatment 4x/Week Duration of Treatment 6 weeks Plan of Care Start Date 11/20/21 Plan of Care End Date 01/01/22 Therapeutic Interventions Therapeutic Interventions Balance Training,Gait Training ,Home Exercise Program, Neuromuscular Re-education, Patient/Caregiver Education, Self-Care/Home Management, Therapeutic Activities, Therapeutic Exercises Next Visit Focus/Plan Next Note Type Treatment Note Next Visit Plan Continue with adapted exercises, gait with turns and quick stops, functional activities, can consider outdoor environment as tolerated as pt feels SOB with masking.
--- NOTE | 2021-12-13 12:26 | PT.OTN ---
Current Diagnoses Parkinson's disease (12/13/21) Physical Therapy Treatment Note PT-OP-A Visit Information Start: 11/19/21 20:22 Freq: Status: Active Protocol: Document 12/13/21 11:04 AMB (Rec: 12/13/21 11:39 AMB [id number]) Out-Patient Physical Therapy Visit Information Visit Information Visit Type Treatment Note Visit Start Time 11:05 Visit Stop Time 12:00 Total Visit Minutes 55 Visit Number 8 PT-OP-B Current Condition Start: 11/19/21 20:22 Freq: Status: Active Protocol: Document 11/20/21 09:40 AMB (Rec: 11/20/21 10:11 AMB [id number]) Current Condition History of Current Condition Onset Date 08/2019 Current Complaints PD History of Current Condition Kade Was really sick with Covid at the beginning of the pandemic and has had difficulty moving, walking ever since. Did have a bad fall wtih vaccuming April 2021. Hasn't been golfing since before covid. Is taking levodopa/carbadopa hasn't noticed a ton of change. Shoulder pain R just happened in the shower yesterday. Is noticing sleep changes, constipation. Feels bilateral knee/quad fatigue/pain limits his walking to about 15 minutes at this point. Lives in a single level home with his spouse a few steps to enter with railing. Treatment Goals Patient/Caregiver Goals Walking, signing name Personal Factors Other Personal Factors That May Effect Hypertension, B knee pain, R Therapy/Recovery shouder pain PT-OP-C Subjective Start: 11/19/21 20:22 Freq: Status: Active Protocol: Document 12/13/21 11:04 AMB (Rec: 12/13/21 11:39 AMB [id number]) OP-PT Subjective Patient Comments Patient Comments Pt reports R knee gave out during weightshifting and he hit his head against the corner of the wall, he caught the wall and did not fall to the ground, but did scrape his forehead. PT-OP-E Functional Tests Start: 11/19/21 20:22 Freq: Status: Active Protocol: Document 11/20/21 10:16 AMB (Rec: 11/20/21 11:13 AMB [id number]) Functional Tests 10 Meter Walk Test Distance 6 Device Used none Five Times Sit to Stand Test Score 9 Comments UEs used, standard height chair Other single leg stance Name of Test 2 seconds PT-OP-G Mobility & Gait Start: 11/19/21 20:22 Freq: Status: Active Protocol: Document 11/20/21 10:16 AMB (Rec: 11/20/21 11:13 AMB [id number]) OP Gait Assessment Comments Gait Comments Pt ambulates in the home without AD, does have a wide based SPC that he uses in the community that he uses in the [place]. Poor heel strike with the left LE, tends to scuff toes. Fast gait but poor posture (forward lean) with reduced trunk rotation. Poor turning- loses balance when turning quickly or even at a moderate speed. PT-OP-J Posture/Palpation/Skin Start: 11/19/21 20:22 Freq: Status: Active Protocol: Document 11/20/21 10:16 AMB (Rec: 11/20/21 11:13 AMB [id number]) Posture Evaluation Comments Posture Comments Forward shoulders increased thoracic kyphosis, able to achieve upright posture with cues PT-OP-K Range of Motion Start: 11/19/21 20:22 Freq: Status: Active Protocol: Document 11/20/21 11:14 AMB (Rec: 11/20/21 11:17 AMB [id number]) Ankle and Foot Goniometric Range of Motion Ankle and Foot Left Passive Comments full passive range PT-OP-M Strength Start: 11/19/21 20:22 Freq: Status: Active Protocol: Document 11/20/21 11:14 AMB (Rec: 11/20/21 11:17 AMB [id number]) Shoulder Strength Shoulder Manual Muscle Testing Right Comments R shoulder pain when controlling descent from full flexion PT-OP-Q Treatments Start: 11/19/21 20:22 Freq: Status: Active Protocol: Document 12/13/21 11:04 AMB (Rec: 12/13/21 11:39 AMB [id number]) Therapeutic Activity Therapeutic Activity transfers Reps/Minutes transfers Comments 90-deg transfers chair to chair 5 feet apart. Focused on toes point away from chair before reaching for chair arms to control for sideways slide. Gait Training Gait Activity 1 Description 6MWT Comments 4 MWT with multiple rest breaks (seated and standing) pt tolerated 4 minutes before stopping due to knee pain. Pt had exhibited increased festinating pattern after about 2 minutes. Neuro Re-Education Treatment Other Activities Sit to stand Details standard height chair; blue balance foam Reps/Duration 5 Comments Good forward reach, cued upright posture Sideways Rock and Reach Reps/Duration 12 Comments Adapted with UE on rail, cued increased rotation, good self- correction with back foot pivot Forward Rock and Reach Details Chair support Reps/Duration 12 Backward Step Details Chair support Reps/Duration 10 Comments Improved weight shift. Began to complain of iincreased knee pain. Sideways Step Details used both arms with SBA Forward Step Details used both arms with SBA Reps/Duration 10 Side to side Details with finger flicks Reps/Duration 8 Comments good self-corrections in posture Floor to ceiling Details with finger flicks Reps/Duration 8 PT-OP-T Assessment and Plan Start: 11/19/21 20:22 Freq: Status: Active Protocol: Document 12/13/21 11:04 AMB (Rec: 12/13/21 11:39 AMB [id number]) Physical Therapy Assessment Goals Two Impairment Upper body ADL Short Term Goal (STG) Kade will sign his name quicky and legibly on a check. STG Duration 4 weeks Alf Goal (LTG) Kade will don and doff a jacket quickly. LTG Duration 6 weeks One Impairment Gait Short Term Goal (STG) Kade will complete a pivot turn without loss of balance. STG Duration 4 weeks Production Packager Goal (LTG) Kade will ambulate 6 minutes over smooth terrain without loss of balance, 1,700 feet would be age/gender norm. 8/3 : 4 minutes; 422ft, required 3 seated rest breaks, able to ambulate 200' then had to take frequent standing stops to control fwd LOB. LTG Duration 6 weeks Assessment Summary Assessment Kade was limited with his 6MWT today due to pain in his bilateral knees. Given that pain was the limiting factor and that he had a near fall due to knee pain yesterday, recommended pt discuss knee pain with PCP. Pt is actually between PC[facility] right now [facility], so recommended establishing with someone. Physical Therapy Plan Next Visit Focus/Plan Next Note Type Progress Note Next Visit Plan Continue with adapted exercises, gait with turns and quick stops, functional activities, can consider outdoor environment as tolerated as pt feels SOB with masking.
--- NOTE | 2021-12-14 13:12 | PT.OTN ---
Current Diagnoses Parkinson's disease (12/14/21) Physical Therapy Treatment Note PT-OP-A Visit Information Start: 11/19/21 20:22 Freq: Status: Active Protocol: Document 12/14/21 11:15 AMB (Rec: 12/14/21 11:52 AMB [id number]) Out-Patient Physical Therapy Visit Information Visit Information Visit Type Progress Note Visit Start Time 11:00 Visit Stop Time 12:00 Total Visit Minutes 60 Visit Number 9 PT-OP-B Current Condition Start: 11/19/21 20:22 Freq: Status: Active Protocol: Document 11/20/21 09:40 AMB (Rec: 11/20/21 10:11 AMB [id number]) Current Condition History of Current Condition Onset Date 08/2019 Current Complaints PD History of Current Condition Kade Was really sick with Covid at the beginning of the pandemic and has had difficulty moving, walking ever since. Did have a bad fall wtih vaccuming April 2021. Hasn't been golfing since before covid. Is taking levodopa/carbadopa hasn't noticed a ton of change. Shoulder pain R just happened in the shower yesterday. Is noticing sleep changes, constipation. Feels bilateral knee/quad fatigue/pain limits his walking to about 15 minutes at this point. Lives in a single level home with his spouse a few steps to enter with railing. Treatment Goals Patient/Caregiver Goals Walking, signing name Personal Factors Other Personal Factors That May Effect Hypertension, B knee pain, R Therapy/Recovery shouder pain PT-OP-C Subjective Start: 11/19/21 20:22 Freq: Status: Active Protocol: Document 12/14/21 11:15 AMB (Rec: 12/14/21 11:52 AMB [id number]) OP-PT Subjective Patient Comments Patient Comments Continued knee pain bilaterally with walking, somewhat with exercises but not as bad with those. Pain reduces quickly with seated rest break. PT-OP-E Functional Tests Start: 11/19/21 20:22 Freq: Status: Active Protocol: Document 11/20/21 10:16 AMB (Rec: 11/20/21 11:13 AMB [id number]) Functional Tests 10 Meter Walk Test Distance 6 Device Used none Five Times Sit to Stand Test Score 9 Comments UEs used, standard height chair Other single leg stance Name of Test 2 seconds PT-OP-G Mobility & Gait Start: 11/19/21 20:22 Freq: Status: Active Protocol: Document 11/20/21 10:16 AMB (Rec: 11/20/21 11:13 AMB [id number]) OP Gait Assessment Comments Gait Comments Pt ambulates in the home without AD, does have a wide based SPC that he uses in the community that he uses in the R UE. Poor heel strike with the left LE, tends to scuff toes. Fast gait but poor posture (forward lean) with reduced trunk rotation. Poor turning- loses balance when turning quickly or even at a moderate speed. PT-OP-J Posture/Palpation/Skin Start: 11/19/21 20:22 Freq: Status: Active Protocol: Document 11/20/21 10:16 AMB (Rec: 11/20/21 11:13 AMB [id number]) Posture Evaluation Comments Posture Comments Forward shoulders increased thoracic kyphosis, able to achieve upright posture with cues PT-OP-K Range of Motion Start: 11/19/21 20:22 Freq: Status: Active Protocol: Document 11/20/21 11:14 AMB (Rec: 11/20/21 11:17 AMB [id number]) Ankle and Foot Goniometric Range of Motion Ankle and Foot Left Passive Comments full passive range PT-OP-M Strength Start: 11/19/21 20:22 Freq: Status: Active Protocol: Document 11/20/21 11:14 AMB (Rec: 11/20/21 11:17 AMB [id number]) Shoulder Strength Shoulder Manual Muscle Testing Right Comments R shoulder pain when controlling descent from full flexion PT-OP-Q Treatments Start: 11/19/21 20:22 Freq: Status: Active Protocol: Document 12/14/21 11:15 AMB (Rec: 12/14/21 11:52 AMB [id number]) Therapeutic Activity Therapeutic Activity transfers Reps/Minutes transfers Comments 90-deg transfers chair to chair 5 feet apart. Focused on toes point away from chair before reaching for chair arms to control for sideways slide. Gait Training Gait Activity 2 Description TUG Comments x3- 13 sec turns Description turns Comments Cued BIG steps, slower pace - 360 deg in 8 steps or less - gait with pivot turns Neuro Re-Education Treatment Other Activities Sit to stand Details standard height chair; blue balance foam Reps/Duration 5 Comments Good forward reach, cued upright posture Sideways Rock and Reach Reps/Duration 12 Comments Adapted with UE on rail, cued increased rotation, good self- correction with back foot pivot Forward Rock and Reach Details Chair support Reps/Duration 12 Backward Step Details Chair support Reps/Duration 10 Comments Improved weight shift. Began to complain of iincreased knee pain. Sideways Step Details used both arms with SBA Forward Step Details used both arms with SBA Reps/Duration 10 Side to side Details with finger flicks Reps/Duration 8 Comments good self-corrections in posture Floor to ceiling Details with finger flicks Reps/Duration 8 PT-OP-T Assessment and Plan Start: 11/19/21 20:22 Freq: Status: Active Protocol: Document 12/14/21 11:15 AMB (Rec: 12/14/21 11:52 AMB [id number]) Physical Therapy Assessment Goals Two Impairment Upper body ADL Short Term Goal (STG) Kade will sign his name quicky and legibly on a check. STG Duration MET Paint Factory Worker Goal (LTG) Kade will don and doff a jacket quickly. LTG Duration 6 weeks One Impairment Gait Short Term Goal (STG) Kade will complete a pivot turn without loss of balance. STG Duration 4 weeks Paint Factory Worker Goal (LTG) Kade will ambulate 6 minutes over smooth terrain without loss of balance, 1,700 feet would be age/gender norm. 8/3 : 4 minutes; 422ft, required 3 seated rest breaks, able to ambulate 200' then had to take frequent standing stops to control fwd LOB. LTG Duration 6 weeks Assessment Summary Assessment TU seconds, 10MWT 7 seconds. Turns less stable than straight away, bilateral knee pain limits gait. Kade is going to follow up with PCP /orthopedist regarding knee pain as SOB, balance, and knee pain all limit gait, but he perceives knee pain as the most limiting at this time. Does have pain with over pressure into flexion and extension. Exercises are not as painful as gait. Physical Therapy Plan Frequency and Duration Frequency of Treatment 4x/Week Duration of Treatment 6 weeks Plan of Care Start Date 11/20/21 Plan of Care End Date 01/01/22 Next Visit Focus/Plan Next Note Type Progress Note Next Visit Plan Continue with adapted exercises, gait with turns and quick stops, functional activities, can consider outdoor environment as tolerated as pt feels SOB with masking.
--- NOTE | 2021-12-18 12:01 | PT.OTN ---
Current Diagnoses Parkinson's disease (12/18/21) Physical Therapy Treatment Note PT-OP-A Visit Information Start: 11/19/21 20:22 Freq: Status: Active Protocol: Document 12/18/21 11:03 AMB (Rec: 12/18/21 11:48 AMB [id number]) Out-Patient Physical Therapy Visit Information Visit Information Visit Type Treatment Note Visit Start Time 11:00 Visit Stop Time 12:00 Total Visit Minutes 45 Visit Number 10 PT-OP-B Current Condition Start: 11/19/21 20:22 Freq: Status: Active Protocol: Document 11/20/21 09:40 AMB (Rec: 11/20/21 10:11 AMB [id number]) Current Condition History of Current Condition Onset Date 08/2019 Current Complaints PD History of Current Condition Kade Was really sick with Covid at the beginning of the pandemic and has had difficulty moving, walking ever since. Did have a bad fall wtih vaccuming April 2021. Hasn't been golfing since before covid. Is taking levodopa/carbadopa hasn't noticed a ton of change. Shoulder pain R just happened in the shower yesterday. Is noticing sleep changes, constipation. Feels bilateral knee/quad fatigue/pain limits his walking to about 15 minutes at this point. Lives in a single level home with his spouse a few steps to enter with railing. Treatment Goals Patient/Caregiver Goals Walking, signing name Personal Factors Other Personal Factors That May Effect Hypertension, B knee pain, R Therapy/Recovery shouder pain PT-OP-C Subjective Start: 11/19/21 20:22 Freq: Status: Active Protocol: Document 12/18/21 11:03 AMB (Rec: 12/18/21 11:48 AMB [id number]) OP-PT Subjective Patient Comments Patient Comments Kade over did it on Saturday. Is more stiff today as a result. Tried to go on a 6 minute walk over uneven terrain. PT-OP-E Functional Tests Start: 11/19/21 20:22 Freq: Status: Active Protocol: Document 11/20/21 10:16 AMB (Rec: 11/20/21 11:13 AMB [id number]) Functional Tests 10 Meter Walk Test Distance 6 Device Used none Five Times Sit to Stand Test Score 9 Comments UEs used, standard height chair Other single leg stance Name of Test 2 seconds PT-OP-G Mobility & Gait Start: 11/19/21 20:22 Freq: Status: Active Protocol: Document 11/20/21 10:16 AMB (Rec: 11/20/21 11:13 AMB [id number]) OP Gait Assessment Comments Gait Comments Pt ambulates in the home without AD, does have a wide based SPC that he uses in the community that he uses in the R UE. Poor heel strike with the left LE, tends to scuff toes. Fast gait but poor posture (forward lean) with reduced trunk rotation. Poor turning- loses balance when turning quickly or even at a moderate speed. PT-OP-J Posture/Palpation/Skin Start: 11/19/21 20:22 Freq: Status: Active Protocol: Document 11/20/21 10:16 AMB (Rec: 11/20/21 11:13 AMB [id number]) Posture Evaluation Comments Posture Comments Forward shoulders increased thoracic kyphosis, able to achieve upright posture with cues PT-OP-K Range of Motion Start: 11/19/21 20:22 Freq: Status: Active Protocol: Document 11/20/21 11:14 AMB (Rec: 11/20/21 11:17 AMB [id number]) Ankle and Foot Goniometric Range of Motion Ankle and Foot Left Passive Comments full passive range PT-OP-M Strength Start: 11/19/21 20:22 Freq: Status: Active Protocol: Document 11/20/21 11:14 AMB (Rec: 11/20/21 11:17 AMB [id number]) Shoulder Strength Shoulder Manual Muscle Testing Right Comments R shoulder pain when controlling descent from full flexion PT-OP-Q Treatments Start: 11/19/21 20:22 Freq: Status: Active Protocol: Document 12/18/21 11:03 AMB (Rec: 12/18/21 11:48 AMB [id number]) Therapeutic Activity Therapeutic Activity transfers Reps/Minutes transfers Comments 90-deg transfers chair to chair 5 feet apart. Focused on toes point away from chair before reaching for chair arms to control for sideways slide. Gait Training Gait Activity walking sticks Comments over smooth terrain, didn't especially seem to improve step length, pt had a difficult time managing stick even though he uses one on uneven terrain stairs Description 4 stairs ascend and descned with railing alternating gait Comments good turns Description turns Comments Cued BIG steps, slower pace - 360 deg in 8 steps or less - gait with pivot turns Neuro Re-Education Treatment Other Activities Sit to stand Details standard height chair; blue balance foam Reps/Duration 5 Comments Good forward reach, cued upright posture Sideways Rock and Reach Reps/Duration 12 Comments Adapted with UE on rail, cued increased rotation, good self- correction with back foot pivot Forward Rock and Reach Details Chair support Reps/Duration 12 Backward Step Details Chair support Reps/Duration 10 Comments Improved weight shift. Began to complain of iincreased knee pain. Sideways Step Details used both arms with SBA Forward Step Details used both arms with SBA Reps/Duration 10 Side to side Details with finger flicks Reps/Duration 8 Comments good self-corrections in posture Floor to ceiling Details with finger flicks Reps/Duration 8 PT-OP-T Assessment and Plan Start: 11/19/21 20:22 Freq: Status: Active Protocol: Document 12/18/21 11:03 AMB (Rec: 12/18/21 11:48 [facility] [id number]) Physical Therapy Assessment Goals Two Impairment Upper body ADL Short Term Goal (STG) Kade will sign his name quicky and legibly on a check. STG Duration MET Care Home Goal (LTG) Kade will don and doff a jacket quickly. LTG Duration 6 weeks One Impairment Gait Short Term Goal (STG) Kade will complete a pivot turn without loss of balance. STG Duration 4 weeks Care Home Goal (LTG) Kade will ambulate 6 minutes over smooth terrain without loss of balance, 1,700 feet would be age/gender norm. 8/3 : 4 minutes; 422ft, required 3 seated rest breaks, able to ambulate 200' then had to take frequent standing stops to control fwd LOB. LTG Duration 6 weeks Assessment Summary Assessment Increased difficulty with walking today afer over doing on Saturday. Time spent counseling patient to avoid long walks but to try 1minute walk, 1 minute rest, as longer walks (over 3-4minutes) especially tire him out. Physical Therapy Plan Next Visit Focus/Plan Next Note Type Treatment Note Next Visit Plan Continue with adapted exercises, gait with turns and quick stops, functional activities, can consider outdoor environment as tolerated as pt feels SOB with masking.
--- NOTE | 2021-12-19 15:47 | PT.OTN ---
Current Diagnoses Parkinson's disease (12/19/21) Physical Therapy Treatment Note PT-OP-A Visit Information Start: 11/19/21 20:22 Freq: Status: Active Protocol: Document 12/19/21 11:02 AMB (Rec: 12/19/21 11:50 AMB [id number]) Out-Patient Physical Therapy Visit Information Visit Information Visit Type Treatment Note Visit Start Time 11:00 Visit Stop Time 12:00 Total Visit Minutes 45 Visit Number 11 PT-OP-B Current Condition Start: 11/19/21 20:22 Freq: Status: Active Protocol: Document 11/20/21 09:40 AMB (Rec: 11/20/21 10:11 AMB [id number]) Current Condition History of Current Condition Onset Date 08/2019 Current Complaints PD History of Current Condition Kade Was really sick with Covid at the beginning of the pandemic and has had difficulty moving, walking ever since. Did have a bad fall wtih vaccuming April 2021. Hasn't been golfing since before covid. Is taking levodopa/carbadopa hasn't noticed a ton of change. Shoulder pain R just happened in the shower yesterday. Is noticing sleep changes, constipation. Feels bilateral knee/quad fatigue/pain limits his walking to about 15 minutes at this point. Lives in a single level home with his spouse a few steps to enter with railing. Treatment Goals Patient/Caregiver Goals Walking, signing name Personal Factors Other Personal Factors That May Effect Hypertension, B knee pain, R Therapy/Recovery shouder pain PT-OP-C Subjective Start: 11/19/21 20:22 Freq: Status: Active Protocol: Document 12/19/21 11:02 AMB (Rec: 12/19/21 11:50 AMB [id number]) OP-PT Subjective Patient Comments Patient Comments Feeling better with knees after resting a bit yesterday, still working on re- establishing with PCP after PCP moved away and needs a new one. PT-OP-E Functional Tests Start: 11/19/21 20:22 Freq: Status: Active Protocol: Document 11/20/21 10:16 AMB (Rec: 11/20/21 11:13 AMB [id number]) Functional Tests 10 Meter Walk Test Distance 6 Device Used none Five Times Sit to Stand Test Score 9 Comments UEs used, standard height chair Other single leg stance Name of Test 2 seconds PT-OP-G Mobility & Gait Start: 11/19/21 20:22 Freq: Status: Active Protocol: Document 11/20/21 10:16 AMB (Rec: 11/20/21 11:13 AMB [id number]) OP Gait Assessment Comments Gait Comments Pt ambulates in the home without AD, does have a wide based SPC that he uses in the community that he uses in the [place] [facility]. Poor heel strike with the left LE, tends to scuff toes. Fast gait but poor posture (forward lean) with reduced trunk rotation. Poor turning- loses balance when turning quickly or even at a moderate speed. PT-OP-J Posture/Palpation/Skin Start: 11/19/21 20:22 Freq: Status: Active Protocol: Document 11/20/21 10:16 AMB (Rec: 11/20/21 11:13 AMB [id number]) Posture Evaluation Comments Posture Comments Forward shoulders increased thoracic kyphosis, able to achieve upright posture with cues PT-OP-K Range of Motion Start: 11/19/21 20:22 Freq: Status: Active Protocol: Document 11/20/21 11:14 AMB (Rec: 11/20/21 11:17 AMB [id number]) Ankle and Foot Goniometric Range of Motion Ankle and Foot Left Passive Comments full passive range PT-OP-M Strength Start: 11/19/21 20:22 Freq: Status: Active Protocol: Document 11/20/21 11:14 AMB (Rec: 11/20/21 11:17 AMB [id number]) Shoulder Strength Shoulder Manual Muscle Testing Right Comments R shoulder pain when controlling descent from full flexion PT-OP-Q Treatments Start: 11/19/21 20:22 Freq: Status: Active Protocol: Document 12/19/21 11:02 AMB (Rec: 12/19/21 11:50 AMB [id number]) Gym Equipment Shuttle Recovery Bilateral Squats Resistance 75 Reps/Time 2x10 Therapeutic Exercises Standing Exercises wall squat Reps/Minutes 2x5 Therapeutic Activity Therapeutic Activity transfers Reps/Minutes transfers Comments 90-deg transfers chair to chair 5 feet apart. Focused on toes point away from chair before reaching for chair arms to control for sideways slide. Gait Training Gait Activity stairs Description 4 stairs ascend and descned with railing alternating gait Comments good turns Description turns Comments Cued BIG steps, slower pace - 360 deg in 8 steps or less - gait with pivot turns Neuro Re-Education Treatment Other Activities Sit to stand Details standard height chair; blue balance foam Reps/Duration 10 Comments Good forward reach, cued upright posture Sideways Rock and Reach Reps/Duration 12 Comments Adapted with UE on rail, cued increased rotation, good self- correction with back foot pivot Forward Rock and Reach Details Chair support Reps/Duration 12 Backward Step Details Chair support Reps/Duration 10 Comments Improved weight shift. Began to complain of iincreased knee pain. Sideways Step Details used both arms with SBA Forward Step Details used both arms with SBA Reps/Duration 10 Side to side Details with finger flicks Reps/Duration 8 Comments good self-corrections in posture Floor to ceiling Details with finger flicks Reps/Duration 8 PT-OP-T Assessment and Plan Start: 11/19/21 20:22 Freq: Status: Active Protocol: Document 12/19/21 11:02 AMB (Rec: 12/19/21 11:50 AMB [id number]) Physical Therapy Assessment Goals Two Impairment Upper body ADL Short Term Goal (STG) Kade will sign his name quicky and legibly on a check. STG Duration MET Intermediate Goal (LTG) Kade will don and doff a jacket quickly. LTG Duration 6 weeks One Impairment Gait Short Term Goal (STG) Kade will complete a pivot turn without loss of balance. STG Duration 4 weeks Intermediate Goal (LTG) Kade will ambulate 6 minutes over smooth terrain without loss of balance, 1,700 feet would be age/gender norm. 83 : 4 minutes; 422ft, required 3 seated rest breaks, able to ambulate 200' then had to take frequent standing stops to control fwd LOB. LTG Duration 6 weeks Assessment Summary Assessment Better walking, but knee pain continues to limit, knee pain worsens when festinating gait worsens. Was able to tolerate shuttle and wall squats to help improve quad strength as pt feels he fatigues very quickly and then pain sets in. Physical Therapy Plan Next Visit Focus/Plan Next Note Type Treatment Note Next Visit Plan Continue with adapted exercises, gait with turns and quick stops, functional activities, can consider outdoor environment as tolerated as pt feels SOB with masking.
--- NOTE | 2021-12-20 13:44 | PT.OTN ---
Current Diagnoses Parkinson's disease (12/20/21) Physical Therapy Treatment Note PT-OP-A Visit Information Start: 11/19/21 20:22 Freq: Status: Active Protocol: Document 12/20/21 11:02 AMB (Rec: 12/20/21 11:29 AMB [id number]) Out-Patient Physical Therapy Visit Information Visit Information Visit Type Treatment Note Visit Start Time 11:00 Visit Stop Time 12:00 Total Visit Minutes 60 Visit Number 12 PT-OP-B Current Condition Start: 11/19/21 20:22 Freq: Status: Active Protocol: Document 11/20/21 09:40 AMB (Rec: 11/20/21 10:11 AMB [id number]) Current Condition History of Current Condition Onset Date 08/2019 Current Complaints PD History of Current Condition Kade Was really sick with Covid at the beginning of the pandemic and has had difficulty moving, walking ever since. Did have a bad fall wtih vaccuming April 2021. Hasn't been golfing since before covid. Is taking levodopa/carbadopa hasn't noticed a ton of change. Shoulder pain R just happened in the shower yesterday. Is noticing sleep changes, constipation. Feels bilateral knee/quad fatigue/pain limits his walking to about 15 minutes at this point. Lives in a single level home with his spouse a few steps to enter with railing. Treatment Goals Patient/Caregiver Goals Walking, signing name Personal Factors Other Personal Factors That May Effect Hypertension, B knee pain, R Therapy/Recovery shouder pain PT-OP-C Subjective Start: 11/19/21 20:22 Freq: Status: Active Protocol: Document 12/20/21 11:02 AMB (Rec: 12/20/21 11:29 AMB [id number]) OP-PT Subjective Patient Comments Patient Comments Continues to feel better with the knees. PT-OP-E Functional Tests Start: 11/19/21 20:22 Freq: Status: Active Protocol: Document 11/20/21 10:16 AMB (Rec: 11/20/21 11:13 AMB [id number]) Functional Tests 10 Meter Walk Test Distance 6 Device Used none Five Times Sit to Stand Test Score 9 Comments UEs used, standard height chair Other single leg stance Name of Test 2 seconds PT-OP-G Mobility & Gait Start: 11/19/21 20:22 Freq: Status: Active Protocol: Document 11/20/21 10:16 AMB (Rec: 11/20/21 11:13 AMB [id number]) OP Gait Assessment Comments Gait Comments Pt ambulates in the home without AD, does have a wide based SPC that he uses in the community that he uses in the R UE. Poor heel strike with the left LE, tends to scuff toes. Fast gait but poor posture (forward lean) with reduced trunk rotation. Poor turning- loses balance when turning quickly or even at a moderate speed. PT-OP-J Posture/Palpation/Skin Start: 11/19/21 20:22 Freq: Status: Active Protocol: Document 11/20/21 10:16 AMB (Rec: 11/20/21 11:13 AMB [id number]) Posture Evaluation Comments Posture Comments Forward shoulders increased thoracic kyphosis, able to achieve upright posture with cues PT-OP-K Range of Motion Start: 11/19/21 20:22 Freq: Status: Active Protocol: Document 11/20/21 11:14 AMB (Rec: 11/20/21 11:17 AMB [id number]) Ankle and Foot Goniometric Range of Motion Ankle and Foot Left Passive Comments full passive range PT-OP-M Strength Start: 11/19/21 20:22 Freq: Status: Active Protocol: Document 11/20/21 11:14 AMB (Rec: 11/20/21 11:17 AMB [id number]) Shoulder Strength Shoulder Manual Muscle Testing Right Comments R shoulder pain when controlling descent from full flexion PT-OP-Q Treatments Start: 11/19/21 20:22 Freq: Status: Active Protocol: Document 12/20/21 11:02 AMB (Rec: 12/20/21 11:29 AMB [id number]) Gym Equipment Shuttle Recovery Bilateral Squats Resistance 75 Reps/Time 2x10 Therapeutic Exercises Standing Exercises calf stretch Reps/Minutes 30x2 wall squat Reps/Minutes 2x5 Gait Training Gait Activity turns Description turns Comments Cued BIG steps, slower pace - 360 deg in 8 steps or less - gait with pivot turns Neuro Re-Education Treatment Other Activities Sit to stand Details standard height chair; blue balance foam Reps/Duration 10 Comments Good forward reach, cued upright posture Sideways Rock and Reach Reps/Duration 12 Comments NO UE support, cued pivot Forward Rock and Reach Details No support Reps/Duration 12 Backward Step Details Chair support Reps/Duration 10 Comments Improved weight shift. Began to complain of iincreased knee pain. Sideways Step Details used both arms with SBA Forward Step Details used both arms with SBA Reps/Duration 10 Side to side Details with finger flicks Reps/Duration 8 Comments good self-corrections in posture Floor to ceiling Details with finger flicks Reps/Duration 8 PT-OP-T Assessment and Plan Start: 11/19/21 20:22 Freq: Status: Active Protocol: Document 12/20/21 11:02 AMB (Rec: 12/20/21 11:29 AMB [id number]) Physical Therapy Assessment Goals Two Impairment Upper body ADL Short Term Goal (STG) Kade will sign his name quicky and legibly on a check. STG Duration MET Reference Data Expert Goal (LTG) Kade will don and doff a jacket quickly. LTG Duration 6 weeks One Impairment Gait Short Term Goal (STG) Kade will complete a pivot turn without loss of balance. STG Duration 4 weeks Detention Goal (LTG) Kade will ambulate 6 minutes over smooth terrain without loss of balance, 1,700 feet would be age/gender norm. 3 : 4 minutes; 422ft, required 3 seated rest breaks, able to ambulate 200' then had to take frequent standing stops to control fwd LOB. LTG Duration 6 weeks Assessment Summary Assessment Better knee pain today, does have more festinating when gets fatigued. Physical Therapy Plan Frequency and Duration Frequency of Treatment 4x/Week Duration of Treatment 6 weeks Plan of Care Start Date 11/20/21 Plan of Care End Date 01/01/22 Therapeutic Interventions Therapeutic Interventions Balance Training,Gait Training ,Home Exercise Program, Neuromuscular Re-education, Patient/Caregiver Education, Self-Care/Home Management, Therapeutic Activities, Therapeutic Exercises Next Visit Focus/Plan Next Note Type Treatment Note Next Visit Plan Continue with adapted exercises, gait with turns and quick stops, functional activities, can consider outdoor environment as tolerated as pt feels SOB with masking.
--- NOTE | 2021-12-21 12:00 | PT.OTN ---
Current Diagnoses Parkinson's disease (12/21/21) Physical Therapy Treatment Note PT-OP-A Visit Information Start: 11/19/21 20:22 Freq: Status: Active Protocol: Document 12/21/21 11:07 AMB (Rec: 12/21/21 11:44 AMB [id number]) Out-Patient Physical Therapy Visit Information Visit Information Visit Type Treatment Note Visit Start Time 11:00 Visit Stop Time 12:00 Total Visit Minutes 60 Visit Number 13 PT-OP-B Current Condition Start: 11/19/21 20:22 Freq: Status: Active Protocol: Document 11/20/21 09:40 AMB (Rec: 11/20/21 10:11 AMB [id number]) Current Condition History of Current Condition Onset Date 08/2019 [address] Complaint[address] History of Current Condition Kade Was really sick with Covid at the beginning of the pandemic and has had difficulty moving, walking ever since. Did have a bad fall wtih vaccuming April 2021. Hasn't been golfing since before covid. Is taking levodopa/carbadopa hasn't noticed a ton of change. Shoulder pain R just happened in the shower yesterday. Is noticing sleep changes, constipation. Feels bilateral knee/quad fatigue/pain limits his walking to about 15 minutes at this point. Lives in a single level home with his spouse a few steps to enter with railing. Treatment Goals Patient/Caregiver Goals Walking, signing name Personal Factors Other Personal Factors That May Effect Hypertension, B knee pain, R Therapy/Recovery shouder pain PT-OP-C Subjective Start: 11/19/21 20:22 Freq: Status: Active Protocol: Document 12/21/21 11:00 AMB (Rec: 12/21/21 11:49 AMB [id number]) OP-PT Subjective Patient Comments Patient Comments Pt is doing ok PT-OP-E Functional Tests Start: 11/19/21 20:22 Freq: Status: Active Protocol: Document 11/20/21 10:16 AMB (Rec: 11/20/21 11:13 AMB [id number]) Functional Tests 10 Meter Walk Test Distance 6 Device Used none Five Times Sit to Stand Test Score 9 Comments UEs used, standard height chair Other single leg stance Name of Test 2 seconds PT-OP-G Mobility & Gait Start: 11/19/21 20:22 Freq: Status: Active Protocol: Document 11/20/21 10:16 AMB (Rec: 11/20/21 11:13 AMB [id number]) OP Gait Assessment Comments Gait Comments Pt ambulates in the home without AD, does have a wide based SPC that he uses in the community that he uses in the R UE. Poor heel strike with the left LE, tends to scuff toes. Fast gait but poor posture (forward lean) with reduced trunk rotation. Poor turning- loses balance when turning quickly or even at a moderate speed. PT-OP-J Posture/Palpation/Skin Start: 11/19/21 20:22 Freq: Status: Active Protocol: Document 11/20/21 10:16 AMB (Rec: 11/20/21 11:13 AMB [id number]) Posture Evaluation Comments Posture Comments Forward shoulders increased thoracic kyphosis, able to achieve upright posture with cues PT-OP-K Range of Motion Start: 11/19/21 20:22 Freq: Status: Active Protocol: Document 11/20/21 11:14 AMB (Rec: 11/20/21 11:17 AMB [id number]) Ankle and Foot Goniometric Range of Motion Ankle and Foot Left Passive Comments full passive range PT-OP-M Strength Start: 11/19/21 20:22 Freq: Status: Active Protocol: Document 11/20/21 11:14 AMB (Rec: 11/20/21 11:17 AMB [id number]) Shoulder Strength Shoulder Manual Muscle Testing Right Comments R shoulder pain when controlling descent from full flexion PT-OP-Q Treatments Start: 11/19/21 20:22 Freq: Status: Active Protocol: Document 12/21/21 11:07 AMB (Rec: 12/21/21 11:44 AMB [id number]) Gym Equipment Shuttle Recovery Bilateral Squats Resistance 75 Reps/Time 2x10 Therapeutic Exercises Standing Exercises calf stretch Reps/Minutes 30x2 Gait Training Gait Activity 2 Description 200' Comments no AD-- festinating gait increases last 50' turns Description turns Comments Cued BIG steps, slower pace - 360 deg in 8 steps or less - gait with pivot turns Neuro Re-Education Treatment Other Activities Sit to stand Details standard height chair; blue balance foam Reps/Duration 10 Comments Good forward reach, cued upright posture Sideways Rock and Reach Reps/Duration 12 Comments NO UE support, cued pivot Forward Rock and Reach Details No support Reps/Duration 12 Backward Step Details Chair support Reps/Duration 10 Comments Improved weight shift. Began to complain of iincreased knee pain. Sideways Step Details used both arms with SBA Forward Step Details used both arms with SBA Reps/Duration 10 Side to side Details with finger flicks Reps/Duration 8 Comments good self-corrections in posture Floor to ceiling Details with finger flicks Reps/Duration 8 PT-OP-T Assessment and Plan Start: 11/19/21 20:22 Freq: Status: Active Protocol: Document 12/21/21 11:07 AMB (Rec: 12/21/21 11:44 AMB [id number]) Physical Therapy Assessment Goals Two Impairment Upper body ADL Short Term Goal (STG) Kade will sign his name quicky and legibly on a check. STG Duration MET Straddle Bug Goal (LTG) Kade will don and doff a jacket quickly. LTG Duration 6 weeks One Impairment Gait Short Term Goal (STG) Kade will complete a pivot turn without loss of balance. STG Duration 4 weeks [facility] Goal (LTG) Kade will ambulate 6 minutes over smooth terrain without loss of balance, 1,700 feet would be age/gender norm. 8/3 : 4 minutes; 422ft, required 3 seated rest breaks, able to ambulate 200' then had to take frequent standing stops to control fwd LOB. LTG Duration 6 weeks Assessment Summary Assessment Turns with gait when knees get fatigued increase challenge significantly. Continues to get fatigued after about 200'. Weightbearing continues to irritate knee pain. Encouraged pt to consider pool exercise given knee pain. Physical Therapy Plan Frequency and Duration Frequency of Treatment 4x/Week Duration of Treatment 6 weeks Plan of Care Start Date 11/20/21 Plan of Care End Date 01/01/22 Next Visit Focus/Plan Next Note Type Treatment Note Next Visit Plan Continue with adapted exercises, gait with turns and quick stops, functional activities, can consider outdoor environment as tolerated as pt feels SOB with masking.
--- NOTE | 2021-12-25 15:51 | PT.OTN ---
Current Diagnoses Parkinson's disease (12/25/21) Physical Therapy Treatment Note PT-OP-A Visit Information Start: 11/19/21 20:22 Freq: Status: Active Protocol: Document 12/25/21 11:01 AMB (Rec: 12/25/21 11:24 AMB [id number]) Out-Patient Physical Therapy Visit Information Visit Information Visit Type Treatment Note Visit Start Time 11:00 Visit Stop Time 12:00 Total Visit Minutes 60 Visit Number 14 PT-OP-B Current Condition Start: 11/19/21 20:22 Freq: Status: Active Protocol: Document 11/20/21 09:40 AMB (Rec: 11/20/21 10:11 AMB [id number]) Current Condition History of Current Condition Onset Date 08/2019 Current Complaint[address] History of Current Condition Kade Was really sick with Covid at the beginning of the pandemic and has had difficulty moving, walking ever since. Did have a bad fall wtih vaccuming April 2021. Hasn't been golfing since before covid. Is taking levodopa/carbadopa hasn't noticed a ton of change. Shoulder pain R just happened in the shower yesterday. Is noticing sleep changes, constipation. Feels bilateral knee/quad fatigue/pain limits his walking to about 15 minutes at this point. Lives in a single level home with his spouse a few steps to enter with railing. Treatment Goals Patient/Caregiver Goals Walking, signing name Personal Factors Other Personal Factors That May Effect Hypertension, B knee pain, R Therapy/Recovery shouder pain PT-OP-C Subjective Start: 11/19/21 20:22 Freq: Status: Active Protocol: Document 12/25/21 11:01 AMB (Rec: 12/25/21 11:24 AMB [id number]) OP-PT Subjective Patient Comments Patient Comments Pt feels like he's getting a bit stronger. PT-OP-E Functional Tests Start: 11/19/21 20:22 Freq: Status: Active Protocol: Document 11/20/21 10:16 AMB (Rec: 11/20/21 11:13 AMB [id number]) Functional Tests 10 Meter Walk Test Distance 6 Device Used none Five Times Sit to Stand Test Score 9 Comments UEs used, standard height chair Other single leg stance Name of Test 2 seconds PT-OP-G Mobility & Gait Start: 11/19/21 20:22 Freq: Status: Active Protocol: Document 11/20/21 10:16 AMB (Rec: 11/20/21 11:13 AMB [id number]) OP Gait Assessment Comments Gait Comments Pt ambulates in the home without AD, does have a wide based SPC that he uses in the community that he uses in the [place] [facility]. Poor heel strike with the left LE, tends to scuff toes. Fast gait but poor posture (forward lean) with reduced trunk rotation. Poor turning- loses balance when turning quickly or even at a moderate speed. PT-OP-J Posture/Palpation/Skin Start: 11/19/21 20:22 Freq: Status: Active Protocol: Document 11/20/21 10:16 AMB (Rec: 11/20/21 11:13 AMB [id number]) Posture Evaluation Comments Posture Comments Forward shoulders increased thoracic kyphosis, able to achieve upright posture with cues PT-OP-K Range of Motion Start: 11/19/21 20:22 Freq: Status: Active Protocol: Document 11/20/21 11:14 AMB (Rec: 11/20/21 11:17 AMB [id number]) Ankle and Foot Goniometric Range of Motion Ankle and Foot Left Passive Comments full passive range PT-OP-M Strength Start: 11/19/21 20:22 Freq: Status: Active Protocol: Document 11/20/21 11:14 AMB (Rec: 11/20/21 11:17 AMB [id number]) Shoulder Strength Shoulder Manual Muscle Testing Right Comments R shoulder pain when controlling descent from full flexion PT-OP-Q Treatments Start: 11/19/21 20:22 Freq: Status: Active Protocol: Document 12/25/21 11:01 AMB (Rec: 12/25/21 11:24 AMB [id number]) Gym Equipment Shuttle Recovery Bilateral Squats Resistance 75 Reps/Time 2x10 Gait Training Gait Activity turns Description turns Comments Cued BIG steps, slower pace - 360 deg in 8 steps or less - gait with pivot turns 1 Description hurdles Comments in // bars- 4 reps with UE support, 2 without. Neuro Re-Education Treatment Other Activities Sit to stand Details standard height chair; blue balance foam Reps/Duration 10 Comments Good forward reach, cued upright posture Sideways Rock and Reach Reps/Duration 12 Comments NO UE support, cued pivot Forward Rock and Reach Details No support Reps/Duration 12 Backward Step Details Chair support Reps/Duration 10 Sideways Step Details used both arms with SBA Forward Step Details used both arms with SBA Reps/Duration 10 Side to side Details with finger flicks Reps/Duration 8 Comments good self-corrections in posture Floor to ceiling Details with finger flicks Reps/Duration 8 PT-OP-T Assessment and Plan Start: 11/19/21 20:22 Freq: Status: Active Protocol: Document 12/25/21 11:01 AMB (Rec: 12/25/21 11:24 AMB [id number]) Physical Therapy Assessment Goals Two Impairment Upper body ADL Short Term Goal (STG) Kade will sign his name quicky and legibly on a check. STG Duration MET [place] Closer Goal (LTG) Kade will don and doff a jacket quickly. LTG Duration 6 weeks One Impairment Gait Short Term Goal (STG) Kade will complete a pivot turn without loss of balance. STG Duration 4 weeks Snf Goal (LTG) Kade will ambulate 6 minutes over smooth terrain without loss of balance, 1,700 feet would be age/gender norm. 8/3 : 4 minutes; 422ft, required 3 seated rest breaks, able to ambulate 200' then had to take frequent standing stops to control fwd LOB. LTG Duration 6 weeks Assessment Summary Assessment Tolerated hurdles well. Does fatigue at end of session. Reinforced continued need to be consistent with exercises. tolerating less UE support with exercises Physical Therapy Plan Frequency and Duration Frequency of Treatment 4x/Week Duration of Treatment 6 weeks Plan of Care Start Date 11/20/21 Plan of Care End Date 01/01/22 Therapeutic Interventions Therapeutic Interventions Balance Training,Gait Training ,Home Exercise Program, Neuromuscular Re-education, Patient/Caregiver Education, Self-Care/Home Management, Therapeutic Activities, Therapeutic Exercises Next Visit Focus/Plan Next Note Type Treatment Note Next Visit Plan Continue with adapted exercises, gait with turns and quick stops, functional activities, can consider outdoor environment as tolerated as pt feels SOB with masking.
--- NOTE | 2021-12-26 15:59 | PT.OTN ---
Current Diagnoses Parkinson's disease (12/26/21) Physical Therapy Treatment Note PT-OP-A Visit Information Start: 11/19/21 20:22 Freq: Status: Active Protocol: Document 12/26/21 11:03 AMB (Rec: 12/26/21 11:57 AMB [id number]) Out-Patient Physical Therapy Visit Information Visit Information Visit Type Treatment Note Visit Start Time 11:00 Visit Stop Time 12:00 Total Visit Minutes 60 Visit Number 15 PT-OP-B Current Condition Start: 11/19/21 20:22 Freq: Status: Active Protocol: Document 11/20/21 09:40 AMB (Rec: 11/20/21 10:11 AMB [id number]) Current Condition History of Current Condition Onset Date 08/2019 Current Complaints PD History of Current Condition Kade Was really sick with Covid at the beginning of the pandemic and has had difficulty moving, walking ever since. Did have a bad fall wtih vaccuming April 2021. Hasn't been golfing since before covid. Is taking levodopa/carbadopa hasn't noticed a ton of change. Shoulder pain R just happened in the shower yesterday. Is noticing sleep changes, constipation. Feels bilateral knee/quad fatigue/pain limits his walking to about 15 minutes at this point. Lives in a single level home with his spouse a few steps to enter with railing. Treatment Goals Patient/Caregiver Goals Walking, signing name Personal Factors Other Personal Factors That May Effect Hypertension, B knee pain, R Therapy/Recovery shouder pain PT-OP-C Subjective Start: 11/19/21 20:22 Freq: Status: Active Protocol: Document 12/26/21 11:03 AMB (Rec: 12/26/21 11:57 AMB [id number]) OP-PT Subjective Patient Comments Patient Comments Pt notes significant stiffness in the morning. PT-OP-E Functional Tests Start: 11/19/21 20:22 Freq: Status: Active Protocol: Document 11/20/21 10:16 AMB (Rec: 11/20/21 11:13 AMB [id number]) Functional Tests 10 Meter Walk Test Distance 6 Device Used none Five Times Sit to Stand Test Score 9 Comments UEs used, standard height chair Other single leg stance Name of Test 2 seconds PT-OP-G Mobility & Gait Start: 11/19/21 20:22 Freq: Status: Active Protocol: Document 11/20/21 10:16 AMB (Rec: 11/20/21 11:13 AMB [id number]) OP Gait Assessment Comments Gait Comments Pt ambulates in the home without AD, does have a wide based SPC that he uses in the community that he uses in the [place] [facility]. Poor heel strike with the left LE, tends to scuff toes. Fast gait but poor posture (forward lean) with reduced trunk rotation. Poor turning- loses balance when turning quickly or even at a moderate speed. PT-OP-J Posture/Palpation/Skin Start: 11/19/21 20:22 Freq: Status: Active Protocol: Document 11/20/21 10:16 AMB (Rec: 11/20/21 11:13 AMB [id number]) Posture Evaluation Comments Posture Comments Forward shoulders increased thoracic kyphosis, able to achieve upright posture with cues PT-OP-K Range of Motion Start: 11/19/21 20:22 Freq: Status: Active Protocol: Document 11/20/21 11:14 AMB (Rec: 11/20/21 11:17 AMB [id number]) Ankle and Foot Goniometric Range of Motion Ankle and Foot Left Passive Comments full passive range PT-OP-M Strength Start: 11/19/21 20:22 Freq: Status: Active Protocol: Document 11/20/21 11:14 AMB (Rec: 11/20/21 11:17 AMB [id number]) Shoulder Strength Shoulder Manual Muscle Testing Right Comments R shoulder pain when controlling descent from full flexion PT-OP-Q Treatments Start: 11/19/21 20:22 Freq: Status: Active Protocol: Document 12/26/21 11:03 AMB (Rec: 12/26/21 11:57 AMB [id number]) Gym Equipment Shuttle Recovery Bilateral Squats Resistance 75 Reps/Time 2x10 Therapeutic Exercises Standing Exercises calf stretch Reps/Minutes 30x2 Gait Training Gait Activity 2 Description 200' Device Used no AD Level of Assistance SBA Comments multiple stops due to festinating gait turns Description turns Comments Cued BIG steps, slower pace - 360 deg in 8 steps or less - gait with pivot turns Neuro Re-Education Treatment Other Activities Sit to stand Details standard height chair; blue balance foam Reps/Duration 10 Comments Good forward reach, cued upright posture Sideways Rock and Reach Reps/Duration 12 Comments NO UE support, cued pivot Forward Rock and Reach Details No support Reps/Duration 12 Backward Step Details Chair support Reps/Duration 10 Sideways Step Details used both arms with SBA Forward Step Details used both arms with SBA Reps/Duration 10 Side to side Details with finger flicks Reps/Duration 8 Comments good self-corrections in posture Floor to ceiling Details with finger flicks Reps/Duration 8 PT-OP-T Assessment and Plan Start: 11/19/21 20:22 Freq: Status: Active Protocol: Document 12/26/21 11:03 AMB (Rec: 12/26/21 11:57 AMB [id number]) Physical Therapy Assessment Goals Two Impairment Upper body ADL Short Term Goal (STG) Kade will sign his name quicky and legibly on a check. STG Duration MET [facility] Goal (LTG) Kade will don and doff a jacket quickly. LTG Duration 6 weeks One Impairment Gait Short Term Goal (STG) Kade will complete a pivot turn without loss of balance. STG Duration 4 weeks [facility] Goal (LTG) Kade will ambulate 6 minutes over smooth terrain without loss of balance, 1,700 feet would be age/gender norm. 3 : 4 minutes; 422ft, required 3 seated rest breaks, able to ambulate 200' then had to take frequent standing stops to control fwd LOB. LTG Duration 6 weeks Assessment Summary Assessment Fatigue continues to be limiting factor as pt continues to exhibit increased knee flexion when he is fatigued leading to more knee fatigue. Physical Therapy Plan Next Visit Focus/Plan Next Note Type Treatment Note Next Visit Plan Continue with adapted exercises, gait with turns and quick stops, functional activities, can consider outdoor environment as tolerated as pt feels SOB with masking.
--- NOTE | 2021-12-27 12:46 | PT.OTN ---
Current Diagnoses Parkinson's disease (12/27/21) Physical Therapy Treatment Note PT-OP-A Visit Information Start: 11/19/21 20:22 Freq: Status: Active Protocol: Document 12/27/21 11:07 AMB (Rec: 12/27/21 11:37 AMB [id number]) Out-Patient Physical Therapy Visit Information Visit Information Visit Type Treatment Note Visit Start Time 11:00 Visit Stop Time 12:00 Total Visit Minutes 60 Visit Number 16 PT-OP-B Current Condition Start: 11/19/21 20:22 Freq: Status: Active Protocol: Document 11/20/21 09:40 AMB (Rec: 11/20/21 10:11 AMB [id number]) Current Condition History of Current Condition Onset Date 08/2019 Current Complaints PD History of Current Condition Kade Was really sick with Covid at the beginning of the pandemic and has had difficulty moving, walking ever since. Did have a bad fall wtih vaccuming April 2021. Hasn't been golfing since before covid. Is taking levodopa/carbadopa hasn't noticed a ton of change. Shoulder pain R just happened in the shower yesterday. Is noticing sleep changes, constipation. Feels bilateral knee/quad fatigue/pain limits his walking to about 15 minutes at this point. Lives in a single level home with his spouse a few steps to enter with railing. Treatment Goals Patient/Caregiver Goals Walking, signing name Personal Factors Other Personal Factors That May Effect Hypertension, B knee pain, R Therapy/Recovery shouder pain PT-OP-C Subjective Start: 11/19/21 20:22 Freq: Status: Active Protocol: Document 12/27/21 11:07 AMB (Rec: 12/27/21 11:37 AMB [id number]) OP-PT Subjective Patient Comments Patient Comments Festinating gait pattern worse in the morning, does feel like ankle exercises are helpful. PT-OP-E Functional Tests Start: 11/19/21 20:22 Freq: Status: Active Protocol: Document 11/20/21 10:16 AMB (Rec: 11/20/21 11:13 AMB [id number]) Functional Tests 10 Meter Walk Test Distance 6 Device Used none Five Times Sit to Stand Test Score 9 Comments UEs used, standard height chair Other single leg stance Name of Test 2 seconds PT-OP-G Mobility & Gait Start: 11/19/21 20:22 Freq: Status: Active Protocol: Document 11/20/21 10:16 AMB (Rec: 11/20/21 11:13 AMB [id number]) OP Gait Assessment Comments Gait Comments Pt ambulates in the home without AD, does have a wide based SPC that he uses in the community that he uses in the [place] [facility]. Poor heel strike with the left LE, tends to scuff toes. Fast gait but poor posture (forward lean) with reduced trunk rotation. Poor turning- loses balance when turning quickly or even at a moderate speed. PT-OP-J Posture/Palpation/Skin Start: 11/19/21 20:22 Freq: Status: Active Protocol: Document 11/20/21 10:16 AMB (Rec: 11/20/21 11:13 AMB [id number]) Posture Evaluation Comments Posture Comments Forward shoulders increased thoracic kyphosis, able to achieve upright posture with cues PT-OP-K Range of Motion Start: 11/19/21 20:22 Freq: Status: Active Protocol: Document 11/20/21 11:14 AMB (Rec: 11/20/21 11:17 AMB [id number]) Ankle and Foot Goniometric Range of Motion Ankle and Foot Left Passive Comments full passive range PT-OP-M Strength Start: 11/19/21 20:22 Freq: Status: Active Protocol: Document 11/20/21 11:14 AMB (Rec: 11/20/21 11:17 AMB [id number]) Shoulder Strength Shoulder Manual Muscle Testing Right Comments R shoulder pain when controlling descent from full flexion PT-OP-Q Treatments Start: 11/19/21 20:22 Freq: Status: Active Protocol: Document 12/27/21 11:07 AMB (Rec: 12/27/21 11:37 AMB [id number]) Gait Training Gait Activity 4WW Comments 200' with 4WW, no festinating gait 2 Description 360' Device Used no AD Level of Assistance SBA Comments multiple stops due to festinating gait 1 Description hurdles Comments in // bars- 4 reps with UE support, 2 without. Neuro Re-Education Treatment Other Activities Sit to stand Details standard height chair; blue balance foam Reps/Duration 10 Comments Good forward reach, cued upright posture Sideways Rock and Reach Reps/Duration 12 Comments NO UE support, cued pivot Forward Rock and Reach Details No support Reps/Duration 12 Backward Step Details Chair support Reps/Duration 10 Sideways Step Details used both arms with SBA Forward Step Details used both arms with SBA Reps/Duration 10 Side to side Details with finger flicks Reps/Duration 8 Comments good self-corrections in posture Floor to ceiling Details with finger flicks Reps/Duration 8 PT-OP-T Assessment and Plan Start: 11/19/21 20:22 Freq: Status: Active Protocol: Document 12/27/21 11:07 AMB (Rec: 12/27/21 11:37 AMB [id number]) Physical Therapy Assessment Goals Two Impairment Upper body ADL Short Term Goal (STG) Kade will sign his name quicky and legibly on a check. STG Duration MET [facility] Goal (LTG) Kade will don and doff a jacket quickly. LTG Duration 6 weeks One Impairment Gait Short Term Goal (STG) Kade will complete a pivot turn without loss of balance. STG Duration 4 weeks [employer] Goal (LTG) Kade will ambulate 6 minutes over smooth terrain without loss of balance, 1,700 feet would be age/gender norm. 12/13 : 4 minutes; 422ft, required 3 seated rest breaks, able to ambulate 200' then had to take frequent standing stops to control fwd LOB. 12/27:360 4 min 30 sec. LTG Duration 6 weeks Assessment Summary Assessment Pt states he feels more movement in the ankles after doing stretches. Significant improvement with gait with 4WW today, did not nearly have the festinating gait that he does without AD. Pt does have a 4WW at home, time spent encouraging pt in using walker as a way to tolerate more walking to build up tolerance to activity, as he continues to have SOB with walking a 200 -300 ft. Physical Therapy Plan Frequency and Duration Frequency of Treatment 4x/Week Duration of Treatment 6 weeks Plan of Care Start Date 11/20/21 Plan of Care End Date 01/01/22 Therapeutic Interventions Therapeutic Interventions Balance Training,Gait Training ,Home Exercise Program, Neuromuscular Re-education, Patient/Caregiver Education, Self-Care/Home Management, Therapeutic Activities, Therapeutic Exercises Next Visit Focus/Plan Next Note Type Treatment Note Next Visit Plan Continue with adapted exercises, gait with turns and quick stops, functional activities, can consider outdoor environment as tolerated as pt feels SOB with masking.
--- NOTE | 2021-12-28 15:45 | PT.OTN ---
Current Diagnoses Parkinson's disease (12/28/21) Physical Therapy Treatment Note PT-OP-A Visit Information Start: 11/19/21 20:22 Freq: Status: Active Protocol: Document 12/28/21 13:04 AMB (Rec: 12/28/21 13:05 AMB [id number]) Out-Patient Physical Therapy Visit Information Visit Information Visit Type Treatment Note Visit Start Time 13:00 Visit Stop Time 14:00 Total Visit Minutes 60 Visit Number 17 PT-OP-B Current Condition Start: 11/19/21 20:22 Freq: Status: Active Protocol: Document 11/20/21 09:40 AMB (Rec: 11/20/21 10:11 AMB [id number]) Current Condition History of Current Condition Onset Date 08/2019 Current Complaints PD History of Current Condition Kade Was really sick with Covid at the beginning of the pandemic and has had difficulty moving, walking ever since. Did have a bad fall wtih vaccuming April 2021. Hasn't been golfing since before covid. Is taking levodopa/carbadopa hasn't noticed a ton of change. Shoulder pain R just happened in the shower yesterday. Is noticing sleep changes, constipation. Feels bilateral knee/quad fatigue/pain limits his walking to about 15 minutes at this point. Lives in a single level home with his spouse a few steps to enter with railing. Treatment Goals Patient/Caregiver Goals Walking, signing name Personal Factors Other Personal Factors That May Effect Hypertension, B knee pain, R Therapy/Recovery shouder pain PT-OP-C Subjective Start: 11/19/21 20:22 Freq: Status: Active Protocol: Document 12/28/21 13:06 AMB (Rec: 12/28/21 13:57 AMB [id number]) OP-PT Subjective Patient Comments Patient Comments Knees are talking a little bit PT-OP-E Functional Tests Start: 11/19/21 20:22 Freq: Status: Active Protocol: Document 11/20/21 10:16 AMB (Rec: 11/20/21 11:13 AMB [id number]) Functional Tests 10 Meter Walk Test Distance 6 Device Used none Five Times Sit to Stand Test Score 9 Comments UEs used, standard height chair Other single leg stance Name of Test 2 seconds PT-OP-G Mobility & Gait Start: 11/19/21 20:22 Freq: Status: Active Protocol: Document 11/20/21 10:16 AMB (Rec: 11/20/21 11:13 AMB [id number]) OP Gait Assessment Comments Gait Comments Pt ambulates in the home without AD, does have a wide based SPC that he uses in the community that he uses in the R UE. Poor heel strike with the left LE, tends to scuff toes. Fast gait but poor posture (forward lean) with reduced trunk rotation. Poor turning- loses balance when turning quickly or even at a moderate speed. PT-OP-J Posture/Palpation/Skin Start: 11/19/21 20:22 Freq: Status: Active Protocol: Document 11/20/21 10:16 AMB (Rec: 11/20/21 11:13 AMB [id number]) Posture Evaluation Comments Posture Comments Forward shoulders increased thoracic kyphosis, able to achieve upright posture with cues PT-OP-K Range of Motion Start: 11/19/21 20:22 Freq: Status: Active Protocol: Document 11/20/21 11:14 AMB (Rec: 11/20/21 11:17 AMB [id number]) Ankle and Foot Goniometric Range of Motion Ankle and Foot Left Passive Comments full passive range PT-OP-M Strength Start: 11/19/21 20:22 Freq: Status: Active Protocol: Document 11/20/21 11:14 AMB (Rec: 11/20/21 11:17 AMB [id number]) Shoulder Strength Shoulder Manual Muscle Testing Right Comments R shoulder pain when controlling descent from full flexion PT-OP-Q Treatments Start: 11/19/21 20:22 Freq: Status: Active Protocol: Document 12/28/21 13:06 AMB (Rec: 12/28/21 13:57 AMB [id number]) Gait Training Gait Activity 4WW Comments 500' with 4WW, festinating starts at about 400' 1 Description hurdles Comments in // bars- 4 reps with UE support, 2 without. Neuro Re-Education Treatment Other Activities Sit to stand Details standard height chair; blue balance foam Reps/Duration 10 Comments Good forward reach, cued upright posture Sideways Rock and Reach Reps/Duration 12 Comments NO UE support, cued pivot Forward Rock and Reach Details No support Reps/Duration 12 Backward Step Details Chair support Reps/Duration 10 Sideways Step Details used both arms with SBA Forward Step Details used both arms with SBA Reps/Duration 10 Side to side Details with finger flicks Reps/Duration 8 Comments good self-corrections in posture Floor to ceiling Details with finger flicks Reps/Duration 8 PT-OP-T Assessment and Plan Start: 11/19/21 20:22 Freq: Status: Active Protocol: Document 12/28/21 13:06 AMB (Rec: 12/28/21 13:57 AMB [id number]) Physical Therapy Assessment Goals Two Impairment Upper body ADL Short Term Goal (STG) Kade will sign his name quicky and legibly on a check. STG Duration MET Ornamental Metal Worker Goal (LTG) Kade will don and doff a jacket quickly. LTG Duration MET One Impairment Gait Short Term Goal (STG) Kade will complete a pivot turn without loss of balance. STG Duration MET Ornamental Metal Worker Goal (LTG) Kade will ambulate 6 minutes over smooth terrain without loss of balance, 1,700 feet would be age/gender norm. 12/13 : 4 minutes; 422ft, required 3 seated rest breaks, able to ambulate 200' then had to take frequent standing stops to control fwd LOB. 12/27:360ft 4 min 30 sec.12/28: 552 in 4 min 41 seconds with 4WW. LTG Duration 6 weeks Assessment Summary Assessment Pt was able to tolerate more of a 6MWT with the 4WW, but continued to max out before testing was over, this time at 4 min 41 seconds. Significantly safer with 4WW and encouraged pt to walk with one in the community for safety and energy management, but pt continues to be hesitant to agree to use 4WW. Encouraged to follow up with PT in 6-9 months to reassess. Currently pt has improved with exercises but improvement is limited by SOB and bilateral knee pain. In addition to festinating gait pattern, his toe walking is worsening his safety and pain. He tends to walk with a knee flexed posture weightbearing on his toes. He was encouraged to follow up with his PCP regarding his knee pain, but likely will continue until he is able to reduce the amount of knee flexion he has in stance. Physical Therapy Plan Frequency and Duration Frequency of Treatment 4x/Week Duration of Treatment 6 weeks Plan of Care Start Date 11/20/21 Plan of Care End Date 01/01/22 Therapeutic Interventions Therapeutic Interventions Balance Training,Gait Training ,Home Exercise Program, Neuromuscular Re-education, Patient/Caregiver Education, Self-Care/Home Management, Therapeutic Activities, Therapeutic Exercises Discharge Physical Therapy Discharge Reasons Goals Met Discharge Comments Pt met majority of goals, but walking is still limited
== END 2022-01-01 13:15 ==
LOC: PHYS 13:00
PROVIDERS: Family Provider Psychiatry & Neurology Neurology; PCP Psychiatry & Neurology Neurology; Referring Provider Psychiatry & Neurology Neurology; Visit Provider Psychiatry & Neurology Neurology
DX: G20 Parkinson's disease (principal)
CPT/HCPCS: 97110; 97112; 97116; 97162; 97530